=== PATIENT | female | born 1945 | race Caucasian/White ===

== ENCOUNTER → 2016-09-12 | Outpatient (CLI) | payer OTHER ==
[~2016-09-12] VITALS: Ht 149.9 cm; Wt 68.3 kg
[~2016-09-12] MED LIST: ACCUPRIL PO; ACCUPRIL40 MG PO; ACETAMINOPHEN PO; APAP500 PO; APAP650 PO; ASPIRIN EC81 M1 PO; ATENOLOL 50 MG50 M1 PO; ATENOLOL 50MG T50 M1 PO; B12INJ IM; BACLOFEN 10MG T10 MG PO; CALCIUM; CALCIUM 1,0001 EACH PO; DETROL2 M1 PO; DICLOFENAC; ENBREL; ENBREL IM; FENTANYL PA12 MCG/HR TD; FENTANYL PA25 MCG/HR TP; FISH OIL 1,2001 EAC3 PO; FISHOIL; FLUOCINONIDE; FOLIC ACID0.4 MG PO; HYDROCHLOROTHIA25 M1 PO; IRON236 MG PO; K-DUR 20 MEQ T20 MEQ PO; LASIX 40 MG TAB40 M2 PO; LIORESAL 10 MG10 MG PO; LIPITOR40 MG PO; MOBIC7.5 MG PO; MOTION RELIEF25 MG PO; MYRBETRIQ50 MG PO; NORTRIPTYLINE H50 M3 PO; NORVASC 5 MG TAB5 MG PO; PRILOSEC 20 MG20 MG PO; PROLIA60 MG/1 ML SQ; QUINAPRIL 20 MG20 MG PO; TRAMADOL 50 MG50 MG PO; VESICARE10 M1 PO; VITAMIN B-625 MG PO; VITAMIN B-650 M1 PO; VITAMIN C120 GM; VITAMIN D-32000 UNIT PO; VITCB500GO PO; VOLTAREN GEL 1100 G1 TOP; VOLTAREN GEL 1100 G2 TOP; ZOFRAN ODT4 MG PO; [UNRECOGNIZED DRUG - OTHER] IM
--- NOTE | ~2016-09-12 | HPC ---
[facility] [address] [place] [address] PAIN MANAGEMENT CONSULTATION Name: MERCEDES PEDRAZA Room #: REG Brianne Asif#: [id number] Admission: 09/12/16 Attend Phys: Kojo Mak DO Discharge: Date of : 45 Report #: [id number] THIS REPORT FOR: //name// CC: Ravi Mak DATE OF SERVICE: 09/12/2016 The patient is a very pleasant 71-year-old female with severe thoracolumbar scoliosis and spondylosis. She has ongoing axial back pain and has had good relief with medial branch dorsal rami diagnostic block on the left at L2, L3, L4 and L5. Diagnostic block was 08/22/2016. That was block #2. The first diagnostic block is 08/08/2016. Incidentally, she had had excellent relief with prior RFL of these joints back in 11/2015. She had relief for 7-8 months. Pain has begun to recur. She presents to pain clinic today for medial branch dorsal rami neurolysis, right L2, L3, L4 and L5 for symptomatic thoracolumbar spondylosis and scoliosis. PROCEDURE: After written informed consent was obtained, the patient was taken to the fluoroscopy suite and placed in prone position. After sterile prep and drape, skin wheal with Xylocaine raised. Four 10 mm RFK needles were placed to contact superior articular process of L5, L4, L3 and L2. AP and lateral projections showed good needle placement adjacent to the corresponding L5, L4, L3 and L2. Medial branch dorsal rami. Appropriate initial impedance, sensory and motor testing was accomplished. A 1 mL of 1% preservative-free Xylocaine was injected through all four needles. All four needles were heated to 80 degrees centigrade for 90 seconds, 10 mg of triamcinolone +1 mL of 0.5% preservative-free bupivacaine was injected at all 4 sites. All needles removed. The area was cleansed, Band-Aids applied. The patient monitored for an appropriate period of time, discharged in good and stable condition, noting incremental relief of baseline pain. Told to use ice to the area today. She understands it will take about 5 days for lesions to "mature." Follow up as needed. <ELECTRONICALLY SIGNED> By: Kojo Mak DO 09/15/16 1130 1020 1101 Kojo Mak DO /nt
[2016-09-12 10:26] VITALS: BP 113/57
== END ==
LOC: PAIN 07:02
DX: M47.815 Spondylosis without myelopathy or radiculopathy, thoracolumbar region (principal); M41.85 Other forms of scoliosis, thoracolumbar region; I10 Essential (primary) hypertension

== ENCOUNTER → 2017-01-08 | Outpatient (CLI) | payer OTHER ==
[~2017-01-08] VITALS: Ht 149.9 cm; Wt 70.9 kg
[2017-01-08 09:25] VITALS: BP 120/64
== END | disposition home or self-care (01) ==
LOC: PAIN 07:23
DX: M47.815 Spondylosis without myelopathy or radiculopathy, thoracolumbar region (principal); M41.85 Other forms of scoliosis, thoracolumbar region

== ENCOUNTER 2017-01-27 06:52 | Inpatient (IN) | payer OTHER ==
[2017-01-27] VITALS (12 sets, daily range): BP systolic 110–144; BP diastolic 57–78
[~2017-01-27] VITALS: Ht 149.9 cm; Wt 70.3 kg
--- NOTE | ~2017-01-27 | CATHLAB ---
[facility] [employer] [place] [address] INVASIVE PROCEDURE REPORT Name: MERCEDES PEDRAZA Room #: 206-P [facility] IN [facility]#: [id number] Admission: 01/27/17 Attend Phys: Ravi Kulkarni, Discharge: Date of : 45 Date of Service: 01/27/17 1743 Report #: [id number] THIS REPORT FOR: //name// APPROVED REPORT Patient Details Patient Status: In-Patient Room #: The patient is a 71 year-old female Event Personnel Carter Coronado Calibration Laboratory Technician, Hali Cloud RN RN, Florencio Adler RN, Catrina Flores Monitor Procedures Performed Left Heart Cath w/or w/o Coronaries [id number] [facility] w/wo Plasty Single CIRC [id number] Indication Dyspnea, Unstable angina Risk Factors Hypercholesterolemia, Coronary Artery DiseaseHypertension Previous Procedures/Diagnoses Previous PCI Procedure Narrative The Right Groin^ was infiltrated with 1% Lidocaine subcutaneous anesthesia. A PINNACLE 5FR Sheath #[id number] sheath was inserted into the RFA^. Coronary angiography was performed using coronary diagnostic catheters. The right coronary system was accessed and visualized with a JR4 catheter. The left coronary system was accessed and visualized with a JL4 catheter. The left ventricle was accessed and visualized with a PIGTAIL catheter. Left ventricular/Aortic Valve gradient assessed via catheter pullback. Left ventriculogram was performed in 30 degree projection. Closure device was deployed with a 6 Fr MYNXGRIP 5F #[id number]. The patient tolerated the procedure well and there were no complications associated with the procedure. There was no hematoma. Intraoperative Conscious Sedation Sedation start time: 15:17 Case end Time: 15:51 Fentanyl 25 mcg Versed 1 mg [facility] [place] [address] INVASIVE PROCEDURE REPORT Name: MERCEDES PEDRAZA Room #: 206-P [facility]#: [id number] Admission: 01/27/17 Attend Phys: Ravi Kulkarni, Discharge: Date of : 45 Date of Service: 01/27/17 1743 Report #: [id number] Fluoro Time: 9.23 minutes Dose: 1566 mGy Contrast Type and Amount: Visipaque 225 ml Coronary Angiography The patient's coronary anatomy is co- dominant. Diagnostic Cath Left Main Patent vessel, no flow limiting lesions. LAD Moderate size caliber vessel, with no flow-limiting lesions. Circumflex Co-dominant vessel, with mild disease in the mid segment, at the bifurcation of the first OM. OM1 Moderate size caliber vessel with a patent stent in the proximal segment. Just proximal to the stent is a severe, discrete stenosis, 80%. Right Coronary Patent stent in the mid segment. Just proximal and distal to the stent is mild disease, 30%. R PDA Patent with no flow-limiting lesions. Left Ventriculography The left ventricle is normal in size with decreased contractility. The left ventricular ejection fraction is estimated to be 40-45%. Left ventricular wall motion abnormalities are present. Focal hypokinesis of the anterolateral and mid inferior segments. Hemodynamics The aortic pressure is 155/70 mmHg with a mean of 105 mmHg. The left ventricular pressure is 165/16 mmHg with a mean of mmHg. The left ventricular end diastolic pressure is 28 mmHg. There was no gradient across the aortic valve upon pullback. Pullback from the left ventricle to the aorta revealed no gradient across the aortic valve. PCI Technique Lesion Anticoagulation was achieved with Angiomax. Percutaneous coronary intervention was performed on the first obtuse marginal branch segment. The lesion stenosis prior to intervention was 80% with AYAZ 3 flow. A LAUNCHER 6FR EBU 3.5 #[id number] Guide Catheter was used to engage the LCA ostium. A Luge Wire .014 x 182CM #[id number] Interventional Guidewire was used to cross the lesion. BALLOON DILATION A Balloon catheter [place] NC RX 2.5 x 8 #[id number] was inserted and inflated up to 16.00atm for 6seconds. [facility] [address] [place] [address] INVASIVE PROCEDURE REPORT Name: MILOMERCEDES Room #: 206-P [facility] IN .R.#: [id number] Admission: 01/27/17 Attend Phys: Ravi Kulkarni, Discharge: Date of : 45 Date of Service: 01/27/17 1743 Report #: [id number] STENT DEPLOYMENT A drug-eluting stent RESOLUTE RX 2.5 X 8 #[id number] was inserted and inflated up to 16.00atm for 16seconds. POST STENT DEPLOYMENT BALLOON DILATION A Balloon catheter Euphora NC RX 2.75 x 6 #[id number] was inserted and inflated up to 18.00atm for 19seconds. Final angiography reveals 0 % stenosis with AYAZ 3 flow. COMMENTS Successful insertion of a 2.5 mm drug-eluting stent into the proximal/ostial segment of the first OM artery, postdilated with a 2.75 mm noncompliant balloon. Conclusion 1. Successful insertion of a drug-eluting stent into the ostial/proximal segment of the first obtuse marginal artery. 2. Patent stents in the proximal OM1 and mid RCA. 3. Mild to moderate LV dysfunction. 4. Recommend dual antiplatelet therapy for at least 6 months to one year. Recommendations Daily ASA with Plavix for at least one year Medical Therapy <ELECTRONICALLY SIGNED> By: Carter Coronado MD 01/27/171742 42 42 Carter Coronado MD /INF
--- NOTE | ~2017-01-27 | EKG ---
[place] [address] [facility] [place] [address] ELECTROCARDIOGRAM REPORT Name: MERCEDES PEDRAZA Room #: 206-P ADM IN .R.#: [id number] Admission: 01/27/17 Attend Phys: Ravi Kulkarni MD Discharge: Date of : 45 Report #: [id number] THIS REPORT FOR: //name// [facility] Test Date: 2017-01-27 Test Time: 16:53:39 Pat Name: MERCEDES PEDRAZA Department: Room: 206 P Gender: F Steam Boiler Fireman: Sergio TONY : 1945 Requested By: Carter Coronado Order Number: [id number] MD: Measurements Intervals [place] Rate: 48 P: 16 ND: 157 QRS: 11 QRSD: 97 T: 23 QT: 454 QTc: 406 Interpretive Statements Sinus bradycardia Low voltage, precordial leads RSR' in V1 or V2, right VCD or RVH Compared to ECG 04/22/2013 03:08:49 Low QRS voltage now present Right ventricular hypertrophy now present Sinus rhythm no longer present T-wave abnormality no longer present [email or web address] By: 1653 1653 Epiphany Epiphany, [place] /COBY
--- NOTE | ~2017-01-27 | EKG ---
[place] [address] [facility] [employer] [place] [address] ELECTROCARDIOGRAM REPORT Name: MERCEDES PEDRAZA Room #: 206-[facility] IN M.R.#: [id number] Admission: 01/27/17 Attend Phys: Ravi Kulkarni MD Discharge: Date of : 45 Report #: [id number] THIS REPORT FOR: //name// [facility] Test Date: 2017-01-28 Test Time: 06:07:41 Pat Name: MERCEDES PEDRAZA Department: Room: 206 P Gender: F Launchman: JOSUE : 1945 Requested By: Carter Coronado Order Number: [id number] MD: Measurements Intervals [place] Rate: 65 P: 22 KS: 172 QRS: 31 QRSD: 96 T: -8 QT: 399 QTc: 415 Interpretive Statements Sinus rhythm Low voltage, precordial leads Abnormal R-wave progression, early transition Borderline T abnormalities, inferior leads Compared to ECG 04/22/2013 03:08:49 Low QRS voltage now present T-wave abnormality still present [email or web address] By: 0607 6 Epiphany Epiphany, /EPI
--- NOTE | ~2017-01-27 | EKG ---
[place] [address] [place] [address] ELECTROCARDIOGRAM REPORT Name: MERCEDES PEDRAZA [id number] Admission: Attend Phys: Discharge: Date of : 45 Report #: [id number] THIS REPORT FOR: //name// [facility] ED Test Date: 2017-01-27 Test Time: 06:55:44 Pat Name: MERCEDES SANTIAGOUTT Department: Room: Gender: F Orthopaedic Physician Assistant: [id number] : 1945 Requested By: Giovana White Order Number: [id number] MD: Measurements Intervals [place] Rate: 63 P: 20 NH: 176 QRS: 25 QRSD: 91 T: 18 QT: 405 QTc: 415 Interpretive Statements Sinus rhythm Low voltage, precordial leads Abnormal R-wave progression, early transition Borderline T abnormalities, anterior leads Compared to ECG 04/22/2013 03:08:49 Low QRS voltage now present T-wave abnormality still present [email or web address] By: 0655 0655 Epiphany EpiphMD melba /EPI
[2017-01-27 07:16] LABS: ABSOLUTE NEUTROPHILS 6.1 thou/uL (1.4-8.2); BASOPHILS 0.8 % (0.0-2.0); EOSINOPHILS 1.6 % (0.0-3.0); HEMATOCRIT 41.8 % (37.0-47.0); HEMOGLOBIN 14.3 gm/dL (12.0-15.0); MCH 32.3 pg (26.0-34.0); MCHC 34.2 g/dL (28.0-37.0); MCV 94.4 fL (80.0-100.0); MONOCYTES 7.6 % (1.0-8.0); PLATELET COUNT 176 thou/uL (150-400); RBC 4.43 mil/uL (4.20-5.00); RDW 13.3 % (10.5-14.5); WBC 8.7 thou/uL (4.0-11.0)
[2017-01-27 07:21] LABS: MANUAL DIFF NO
[2017-01-27 07:23] LABS: CALCIUM 9.6 mg/dL (8.5-10.1); CREATININE 1.2 mg/dL (0.6-1.0)
[2017-01-27] MEDS ORDERED: FLUOCINONI0.05 %/30 TOP (07:25)
[2017-01-27 07:32] LABS: TROPONIN-I 0.12 ng/mL (<0.04-0.07)
[2017-01-27 08:47] LABS: APTT 25.2 Seconds (24.5-32.8); PROTIME 10.3 Seconds (9.3-11.4)
[2017-01-28 00:13] VITALS: BP 123/61
[2017-01-28 00:40] VITALS: BP 123/61
[2017-01-28 03:28] LABS: HEMATOCRIT 40.4 % (37.0-47.0); HEMOGLOBIN 13.7 gm/dL (12.0-15.0); MCH 31.2 pg (26.0-34.0); MCHC 33.8 g/dL (28.0-37.0); MCV 92.3 fL (80.0-100.0); RBC 4.38 mil/uL (4.20-5.00); RDW 13.1 % (10.5-14.5); WBC 7.6 thou/uL (4.0-11.0)
[2017-01-28 03:44] LABS: CREATININE 0.9 mg/dL (0.6-1.0); POTASSIUM 3.9 mmol/L (3.5-5.1)
[2017-01-28 03:47] LABS: TROPONIN-I 3.12 ng/mL (<0.04-0.07)
[2017-01-28 04:42] VITALS: BP 130/71
[2017-01-28 05:00] VITALS: BP 130/71
[2017-01-28] MEDS ORDERED: EFFIENT10 MG PO (07:19)
[2017-01-28 07:25] VITALS: BP 137/71
[2017-01-28 09:16] VITALS: BP 137/71
[2017-01-30] MEDS ORDERED: EFFIENT10 MG PO (10:07)
== END 2017-01-28 10:41 | disposition home or self-care (01) | DRG 247 ==
LOC: ER 06:52 → 2N 07:54 → EROBS 07:54 → 2N 08:43
PROVIDERS: Emergency Medicine; Internal Medicine Cardiovascular Disease
PROC: B2151ZZ Fluoroscopy of Left Heart using Low Osmolar Contrast (ICD-10-PCS; principal; 2017-01-27)
PROC: B2111ZZ Fluoroscopy of Multiple Coronary Arteries using Low Osmolar Contrast (ICD-10-PCS; principal; 2017-01-27)
PROC: 4A023N7 Measurement of Cardiac Sampling and Pressure, Left Heart, Percutaneous Approach (ICD-10-PCS; principal; 2017-01-27)
PROC: 027034Z Dilation of Coronary Artery, One Artery with Drug-eluting Intraluminal Device, Percutaneous Approach (ICD-10-PCS; principal; 2017-01-27)
DX: I21.4 Non-ST elevation (NSTEMI) myocardial infarction (principal); Z96.653 Presence of artificial knee joint, bilateral; I25.10 Atherosclerotic heart disease of native coronary artery without angina pectoris; I10 Essential (primary) hypertension; E78.5 Hyperlipidemia, unspecified; M06.9 Rheumatoid arthritis, unspecified; Z96.642 Presence of left artificial hip joint; Z98.1 Arthrodesis status; Z95.5 Presence of coronary angioplasty implant and graft; Z88.2 Allergy status to sulfonamides
CPT/HCPCS: 10081; 10194

== ENCOUNTER → 2017-01-30 | Outpatient (CLI) | payer OTHER ==
[~2017-01-30] VITALS: Ht 149.9 cm; Wt 69.3 kg
[~2017-01-30] MED LIST changes: +EFFIENT10 MG PO; +FLUOCINONI0.05 %/30 TOP
--- NOTE | ~2017-01-30 | HPC ---
[facility] [address] [place] [address] PAIN MANAGEMENT CONSULTATION Name: MERCEDES PEDRAZA Room #: REG MICHAEL Asif#: [id number] Admission: 01/30/17 Attend Phys: Kojo Mak DO Discharge: Date of : 45 Report #: [id number] THIS REPORT FOR: //name// CC: Ravi Mak The patient is a very pleasant 71-year-old female being treated for thoracolumbar spondylosis, significant scoliosis and axial back pain. On 01/08/2017, I did left L3-L4, L4-5, and L5-U4qucta joint injections under fluoroscopy. The patient had excellent relief, but still is ongoing relief. In the interval since I last saw her, she was admitted to the hospital 01/27/2017 with non-ST elevated [place]. She has had a new stent placed and is on Effient. He returns to pain clinic today noting that the left side of back still is feeling good. She does have significant pain in the right back at the apex of her scoliosis. Pain is exacerbated with rotating and side bending. I talked at length today about therapeutic options. We can proceed with the facet joint injections on a blood thinner per JOHN guide lines. We did discuss risks; however, of increased bruising and paralysis; however, small that risk may be. We have elected to proceed with a right L1-L2, L2-3 and L3-L4 facet joint injections under fluoroscopy, as this appears to be the epicenter of pain on this right side. ASSESSMENT: Symptomatic lumbar spondylosis. PROCEDURE: Right L1-L2, L2-L3, L3-L4 facet joint injections under fluoroscopy. Fluoroscopy time was under 20 seconds. PROCEDURE NOTE: After written informed consent was obtained, the patient was taken to the fluoroscopy suite and placed in prone position. After sterile prep and drape, skin wheal with Xylocaine was raised x 3. Three #25-gauge stylet needle was placed to contact the inferior aspect of the right L1-L2, L2-L3 and L3-L4 facet joints. AP and lateral projections showed good needle placement. 30 mg triamcinolone plus 1 mL of 0.5% preservative-free bupivacaine was injected at each site. All 3 needles removed. The area was cleansed, Band-Aids applied. The patient monitored for an appropriate period of time, discharged in good and stable condition. <ELECTRONICALLY SIGNED> By: Kojo Mak DO 02/02/17 0908 1202 1302 Kojo Mak DO /nt
[2017-01-30 10:02] VITALS: BP 117/68
== END | disposition home or self-care (01) ==
LOC: PAIN 07:18
DX: M47.816 Spondylosis without myelopathy or radiculopathy, lumbar region (principal); G89.29 Other chronic pain; Z88.2 Allergy status to sulfonamides; Z79.82 Long term (current) use of aspirin; Z79.899 Other long term (current) drug therapy; Z98.890 Other specified postprocedural states

== ENCOUNTER 2017-02-19 14:18 | Inpatient (IN) | payer OTHER ==
[~2017-02-19] VITALS: Ht 149.9 cm; Wt 68.0 kg
--- NOTE | ~2017-02-19 | EKG ---
[place] [address] [facility] [place] [address] ELECTROCARDIOGRAM REPORT Name: MERCEDES PEDRAZA Room #: 405-P [facility] IN ..#: [id number] Admission: 02/19/17 Attend Phys: Ravi Kulkarni MD Discharge: Date of : 45 Report #: [id number] THIS REPORT FOR: //name// [facility] ED Test Date: 2017-02-19 Test Time: 15:07:50 Pat Name: MERCEDES PEDRAZA Department: Room: 405 Gender: F Manager Hematology: oz : 1945 Requested By: Luigi Mendez Order Number: [id number] MD: Tevin Dickinson Measurements Intervals [place] Rate: 75 P: 12 MS: 166 QRS: 15 QRSD: 95 T: 5 QT: 377 QTc: 421 Interpretive Statements Sinus rhythm Ventricular premature complex Probable left atrial enlargement Nonspecific ST segment abnormality Abnormal R-wave progression, early transition Compared to ECG 01/28/2017 06:07:41 Ventricular premature complex(es) now present Electronically Signed On 02-20-2017 8:39:32 CDT by Tevin Dickinson [email or web address] <ELECTRONICALLY SIGNED> By: Tevin Dickinson MD, [facility] 02/20/17 0839 1507 1507 Tevin Dickinson MD, [facility] /EPI
[2017-02-19 14:21] VITALS: BP 105/85
[2017-02-19 16:20] LABS: HEMATOCRIT 46.8 % (37.0-47.0); HEMOGLOBIN 15.4 gm/dL (12.0-15.0); MCH 30.7 pg (26.0-34.0); MCHC 32.9 g/dL (28.0-37.0); MCV 93.3 fL (80.0-100.0); RBC 5.01 mil/uL (4.20-5.00); RDW 13.9 % (10.5-14.5); WBC 15.1 thou/uL (4.0-11.0)
[2017-02-19 16:43] LABS: ANION GAP 10 mmol/L (7-16); BUN 23 mg/dL (7-18); CALCIUM 10.8 mg/dL (8.5-10.1); CHLORIDE 106 mmol/L (98-107); CO2 29 mmol/L (21-32); CREATININE 1.2 mg/dL (0.6-1.0); GLUCOSE 131 mg/dL (74-106); POTASSIUM 3.9 mmol/L (3.5-5.1); SODIUM 145 mmol/L (136-145)
[2017-02-19 16:52] LABS: ALBUMIN 4.1 g/dL (3.4-5.0); ALKALINE PHOSPHATASE 89 U/L (46-116); MAGNESIUM 2.4 mg/dL (1.8-2.4); SGOT 34 U/L (15-37); SGPT 33 U/L (30-65); TOTAL BILIRUBIN 0.4 mg/dL (<0.1-1.0); TOTAL PROTEIN 8.3 g/dL (6.4-8.2); TROPONIN-I < 0.04 ng/mL (<0.04-0.07)
[2017-02-19 21:15] VITALS: BP 144/71
[2017-02-19 22:15] VITALS: BP 134/71
[2017-02-20 05:29] VITALS: BP 120/62
[2017-02-20 07:35] VITALS: BP 115/63
[2017-02-20 08:10] LABS: HEMATOCRIT 41.6 % (37.0-47.0); HEMOGLOBIN 13.9 gm/dL (12.0-15.0); MCH 31.2 pg (26.0-34.0); MCHC 33.5 g/dL (28.0-37.0); MCV 93.1 fL (80.0-100.0); RBC 4.47 mil/uL (4.20-5.00); RDW 14.3 % (10.5-14.5); WBC 14.3 thou/uL (4.0-11.0)
[2017-02-20 15:12] VITALS: BP 120/69
[2017-02-20 16:40] VITALS: BP 127/63
[2017-02-20 20:14] VITALS: BP 114/59
[2017-02-21 04:21] VITALS: BP 88/48
[2017-02-21 06:50] VITALS: BP 87/48
[2017-02-21 07:30] VITALS: BP 94/50
[2017-02-21 16:20] VITALS: BP 101/51
[2017-02-21 20:04] VITALS: BP 91/41
[2017-02-22 04:15] VITALS: BP 90/48
[2017-02-22 06:23] LABS: HEMATOCRIT 37.6 % (37.0-47.0); HEMOGLOBIN 12.6 gm/dL (12.0-15.0); MCHC 33.4 g/dL (28.0-37.0); MCV 92.6 fL (80.0-100.0); RBC 4.05 mil/uL (4.20-5.00); RDW 14.2 % (10.5-14.5); WBC 9.3 thou/uL (4.0-11.0)
[2017-02-22 06:34] LABS: CALCIUM 9.3 mg/dL (8.5-10.1); CREATININE 1.3 mg/dL (0.6-1.0); POTASSIUM 3.5 mmol/L (3.5-5.1)
[2017-02-22 08:02] VITALS: BP 101/47
[2017-02-22] MEDS ORDERED: LEVAQUIN 500 M500 M2 PO (10:26)
[2017-02-22 11:07] VITALS: BP 101/47
== END 2017-02-22 13:48 | disposition home or self-care (01) | DRG 872 ==
LOC: ER 14:18 → EROBS 20:43 → 4N 20:43
PROVIDERS: Emergency Medicine; Family Medicine
DX: A41.9 Sepsis, unspecified organism (principal); N17.9 Acute kidney failure, unspecified; K92.2 Gastrointestinal hemorrhage, unspecified; K52.9 Noninfective gastroenteritis and colitis, unspecified; M06.9 Rheumatoid arthritis, unspecified; I10 Essential (primary) hypertension; Z96.653 Presence of artificial knee joint, bilateral; Z95.5 Presence of coronary angioplasty implant and graft; Z98.1 Arthrodesis status; Z79.82 Long term (current) use of aspirin; Z79.899 Other long term (current) drug therapy; Z88.2 Allergy status to sulfonamides
CPT/HCPCS: 10091

== ENCOUNTER → 2017-03-09 | Outpatient (CLI) | payer OTHER ==
[~2017-03-09] VITALS: Ht 149.9 cm; Wt 65.8 kg
[~2017-03-09] MED LIST changes: +LEVAQUIN 500 M500 M2 PO
--- NOTE | ~2017-03-09 | HPC ---
[facility] [address] [place] [address] PAIN MANAGEMENT CONSULTATION Name: MERCEDES PEDRAZA Room #: REG MICHAEL Asif#: [id number] Admission: 03/09/17 Attend Phys: Kojo Mak DO Discharge: Date of : 45 Report #: [id number] THIS REPORT FOR: //name// CC: Ravi Mak The patient is a very pleasant 71-year-old female typically treated for thoracolumbar scoliosis and spondylosis, chronic axial back pain. She has done well with occasional facet joint injections, she did well with radiofrequency neurolysis in August of this year. Pain has begun to recur. I did left facet joint injections in December with excellent ongoing improvement of pain, right facet joint injections in January with only transient improvement. She notes left side still feels good, but the right side is problematic. Pain is in the mid back area along the apex of the scoliotic arch exacerbated with rotation and side bending. Discussion with the patient today about therapeutic options. She unfortunately had a recent cardiac event and now has endovascular stents placed and is currently anticoagulated. We talked about moving forward with medial branch dorsal rami diagnostic blocks today. If, however, this gives her good transient relief, we will need to move forward with radiofrequency neurolysis, would want her off of her blood thinner. She tells me that she has a colonoscopy planned I believe in March, will obviously need to be off the blood thinner for that procedure. We may try and coordinate those procedures. ASSESSMENT: Symptomatic thoracolumbar spondylosis and scoliosis with lumbar axial back pain. PROCEDURE: Medial branch dorsal rami diagnostic block times 4 on the right, L1, L2, L3 and L4. PROCEDURE NOTE: Lumbar medial branch dorsal rami diagnostic block times 4 under fluoroscopy. DESCRIPTION OF PROCEDURE: After written informed consent was obtained, the patient was taken to the fluoroscopy suite and placed in prone position. After sterile prep and drape, skin wheals with Xylocaine were raised. Four 25-gauge stylet needles was placed to contact the superior articular process of L2, L3, L4 and L5 adjacent to the L1, L2, L3 and L4 medial branch dorsal rami. AP and lateral projections showed good needle placement. A 1 mL of 50:50 mix of 0.5% preservative-free bupivacaine plus 1 mL of 1.5% preservative-free Xylocaine with 1:200,000 epinephrine was injected at all 4 sites. All 4 needles removed. The area was cleansed, Band-Aids applied. Fluoroscopy time was 120 seconds. The patient noted pain was absent on discharge. We will plan on moving forward with RFL in coordination with her colonoscopy. By: 1621 0423 Kojo Mak DO /nt
[2017-03-09 12:28] VITALS: BP 134/64
== END | disposition home or self-care (01) ==
LOC: PAIN 10:12
DX: M47.815 Spondylosis without myelopathy or radiculopathy, thoracolumbar region (principal); M41.85 Other forms of scoliosis, thoracolumbar region; M54.5 Low back pain; G89.29 Other chronic pain; Z98.890 Other specified postprocedural states; Z88.2 Allergy status to sulfonamides; Z79.82 Long term (current) use of aspirin; Z79.899 Other long term (current) drug therapy

== ENCOUNTER → 2017-03-23 | Outpatient (CLI) | payer OTHER ==
[~2017-03-23] VITALS: Ht 149.9 cm; Wt 68.1 kg
--- NOTE | ~2017-03-23 | HPC ---
[facility] [address] [place] [address] PAIN MANAGEMENT CONSULTATION Name: MERCEDES PEDRAZA Room #: REG MICHAEL Asif#: [id number] Admission: 03/23/17 Attend Phys: Kojo Mak DO Discharge: Date of : 45 Report #: [id number] THIS REPORT FOR: //name// CC: Ravi Mak HISTORY OF PRESENT ILLNESS: The patient is a pleasant 71-year-old female, well known to the pain clinic, treated for thoracolumbar scoliosis and spondylosis and chronic pain syndrome. We did medial branch dorsal rami diagnostic blocks, right L1, L2, L3, L4 on 03/09/2017. The patient notes she had significant improvement of baseline pain, some 90% relief for several hours. She is very desirous of repeating radiofrequency neurolysis of same. We talked at length about doing this block, even though she cannot get off her blood thinner. I talked about the possibility of significant bleeding and bruising which should be far away from the spinal cord and nerve roots. ASSESSMENT: Symptomatic spondylosis. PROCEDURE: Right L1, L2, L3 and L4 medial branch dorsal rami and neurolysis. PROCEDURE NOTE: After written informed consent was obtained including risk of paralysis increasing pain, infection and significant bleeding, the patient wished to proceed, taken to the fluoroscopy suite and placed in prone position. After sterile prep and drape, skin was raised. Four skin wheals were raised with Xylocaine. Four 10 mm RFK needles were placed to contact superior articular process of L1, L2, L3 and L4. AP and lateral projections showed good needle placement adjacent to the L1, L2, L3 and L4 medial branch dorsal rami. Appropriate initial impedance, sensory testing and motor testing was accomplished. A 1 mL of 1% preservative-free Xylocaine was injected through each needle. All 4 needles were then heated to 80 degrees centigrade for 90 seconds. A 10 mg triamcinolone plus 1 mL of 0.5% preservative-free bupivacaine was injected. All 4 needles were removed. Area was cleansed, Band-Aids applied. The patient monitored for an appropriate period of time, discharged in good and stable condition. She was told to use ice to the area today. Follow up as needed. <ELECTRONICALLY SIGNED> By: Kojo Mak DO 03/25/17 0752 1600 0005 Kojo Mak DO /nt
[2017-03-23 14:15] VITALS: BP 128/71
== END ==
LOC: PAIN 07:36
DX: M41.86 Other forms of scoliosis, lumbar region (principal); M47.896 Other spondylosis, lumbar region; G89.29 Other chronic pain; I10 Essential (primary) hypertension; M19.012 Primary osteoarthritis, left shoulder; M19.011 Primary osteoarthritis, right shoulder; M06.812 Other specified rheumatoid arthritis, left shoulder; M06.811 Other specified rheumatoid arthritis, right shoulder; Z88.2 Allergy status to sulfonamides; Z79.899 Other long term (current) drug therapy

== ENCOUNTER 2017-05-22 01:59 | Inpatient (IN) | payer OTHER ==
[2017-05-22] VITALS (7 sets, daily range): BP systolic 86–133; BP diastolic 53–67
[~2017-05-22] VITALS: Ht 149.9 cm; Wt 67.1 kg
--- NOTE | ~2017-05-22 | EKG ---
[address] [employer] [address] ELECTROCARDIOGRAM REPORT Name: MERCEDES PEDRAZA Room #: 443-P [facility]#: [id number] Admission: 05/22/17 Attend Phys: Ravi Kulkarni MD Discharge: 05/22/17 Date of : 45 Report #: [id number] THIS REPORT FOR: //name// [facility] ED Test Date: 2017-05-22 Test Time: 02:21:26 Pat Name: MERCEDES PEDRAZA Department: Room: [facility] Gender: F Agricultural Equipment Operator: MZOOK : 1945 Requested By: Sofi Briggs Order Number: [id number] MD: Roberto Liu Measurements Intervals [place] Rate: 74 P: 21 NC: 160 QRS: 42 QRSD: 98 T: 6 QT: 395 QTc: 439 Interpretive Statements Sinus rhythm Multiple ventricular premature complexes Low voltage, precordial leads RSR' in V1 or V2, right VCD or RVH Electronically Signed On 05-23-2017 12:20:13 CUPOLA REPAIRER by Roberto Liu [email or web address] <ELECTRONICALLY SIGNED> By: Roberto Liu MD 05/23/17 1220 0 0 Roberto Liu MD /EPI
[2017-05-22 02:53] LABS: ABSOLUTE NEUTROPHILS 5.9 thou/uL (1.4-8.2); BASOPHILS 0.9 % (0.0-2.0); EOSINOPHILS 1.6 % (0.0-3.0); HEMATOCRIT 42.1 % (37.0-47.0); HEMOGLOBIN 13.6 gm/dL (12.0-15.0); LYMPHOCYTES 18.9 % (24.0-44.0); MCHC 32.2 g/dL (28.0-37.0); MCV 96.2 fL (80.0-100.0); MONOCYTES 7.3 % (1.0-8.0); PLATELET COUNT 225 thou/uL (150-400); POLYS 71.3 % (36.0-66.0); RBC 4.38 mil/uL (4.20-5.00); RDW 13.2 % (10.5-14.5); WBC 8.2 thou/uL (4.0-11.0)
[2017-05-22 02:59] LABS: ANION GAP 6 mmol/L (7-16); BUN 24 mg/dL (7-18); CALCIUM 9.4 mg/dL (8.5-10.1); CHLORIDE 107 mmol/L (98-107); CO2 29 mmol/L (21-32); CREATININE 1.2 mg/dL (0.6-1.0); GLUCOSE 112 mg/dL (74-106); POTASSIUM 3.8 mmol/L (3.5-5.1); SODIUM 142 mmol/L (136-145)
[2017-05-22 03:07] LABS: ALBUMIN 3.5 g/dL (3.4-5.0); DIRECT BILIRUBIN < 0.1 mg/dL (<0.1-0.3); LIPASE 203 U/L (73-393); SGOT 28 U/L (15-37); SGPT 30 U/L (30-65); TOTAL BILIRUBIN 0.3 mg/dL (<0.1-1.0); TROPONIN-I < 0.04 ng/mL (<0.06)
[2018-03-17] MEDS ORDERED: SYNTHROID100 MC1 PO (12:53)
[2018-03-24] MEDS ORDERED: TREXALL15 MG PO (11:18)
[2018-03-26] MEDS ORDERED: FOLIC ACID1 MG PO (10:05)
[2018-03-26] MEDS ORDERED: SYNTHROID88 MCG PO (10:06)
[2018-03-26] MEDS ORDERED: OMEPRAZOLE 20 M20 M1 PO (10:10)
== END 2017-05-22 20:00 | disposition home or self-care (01) | DRG 392 ==
LOC: ER 01:59 → 4S 04:19 → EROBS 04:19 → 4S 04:47
PROVIDERS: Emergency Medicine
DX: K52.89 Other specified noninfective gastroenteritis and colitis (principal); R53.1 Weakness; I10 Essential (primary) hypertension; R11.10 Vomiting, unspecified; R19.7 Diarrhea, unspecified; M06.9 Rheumatoid arthritis, unspecified; Z96.653 Presence of artificial knee joint, bilateral; Z88.2 Allergy status to sulfonamides
CPT/HCPCS: 10100

== ENCOUNTER → 2017-06-12 | Outpatient (CLI) | payer OTHER ==
[~2017-06-12] VITALS: Ht 149.9 cm; Wt 67.1 kg
--- NOTE | ~2017-06-12 | HPC ---
[facility] [address] [place] [address] PAIN MANAGEMENT CONSULTATION Name: MERCEDES PEDRAZA Room #: REG ALANA Yefri#: [id number] Admission: 06/12/17 Attend Phys: Kojo Mak DO Discharge: Date of : 45 Report #: [id number] THIS REPORT FOR: //name// CC: Ravi Mak The patient is a very pleasant 71-year-old female, well known to the pain clinic, typically treated for thoracolumbar scoliosis and spondylosis. She was last seen in the pain clinic on 03/23/2017. We performed radiofrequency neurolysis right L1, L2, L3 and L4 medial branch dorsal rami. Returns to pain clinic today noting that the pain along the apex of the thoracolumbar curve is actually improved. She is having increasing pain in the right low back over the right SI joint. Pain is exacerbated with standing, walking and flexing forward. She rates the pain at 5-6 on a VAS. Also, having some pain in the left shoulder. She has a history of shoulder rotator cuff tear and labrum repair 5 years ago. She is scheduled to see orthopedic at shortly. Ongoing axial back pain, relatively well controlled; right SI joint pain is quite problematic and pain in the left shoulder with exacerbated active and passive rotation and tenderness in the trapezius. Brandy test is positive as is Gaenslen's and pelvic compression test for right SI mediated pain. ASSESSMENT: Symptomatic sacroiliac mediated pain (right), thoracolumbar scoliosis, spondylosis and left shoulder pain. RECOMMENDATIONS: 1. SI joint injection under fluoroscopy today on the right. 2. IM injection of 30 mg Toradol for left shoulder and axial back pain. PROCEDURE NOTE: After written informed consent was obtained, the patient was taken to the fluoroscopy suite and placed in the prone position. After sterile prep and drape, skin was raised. A 22-gauge stylet needle was placed to contact the upper aspect of the right SI joint. Negative aspiration was accomplished. 1 mL of Omnipaque was injected, which showed spread within the joints followed with 40 mg triamcinolone plus 2 mL of 0.5 preservative-free bupivacaine. Needle was removed. The area was cleansed and Band-Aids applied. I then placed an IM injection of 30 mg Toradol in the right gluteus medius. Band-Aid was applied here as well. The patient was allowed to ambulate to the recovery room, monitored for an appropriate period of time, discharged in good and stable condition. By: 1653 2213 Kojo Mak DO /nt
[2017-06-12 14:34] VITALS: BP 109/69
== END | disposition home or self-care (01) ==
LOC: PAIN 07:52
DX: M53.3 Sacrococcygeal disorders, not elsewhere classified (principal); G89.29 Other chronic pain; M41.85 Other forms of scoliosis, thoracolumbar region; M47.895 Other spondylosis, thoracolumbar region; M25.512 Pain in left shoulder; Z98.890 Other specified postprocedural states; Z88.2 Allergy status to sulfonamides; Z79.82 Long term (current) use of aspirin; Z79.899 Other long term (current) drug therapy

== ENCOUNTER → 2017-07-23 | Outpatient (CLI) | payer OTHER ==
[~2017-07-23] MED LIST changes: +FOLIC ACID1 MG PO; +OMEPRAZOLE 20 M20 M1 PO; +SYNTHROID100 MC1 PO; +SYNTHROID88 MCG PO; +TREXALL15 MG PO
== END ==
LOC: RAD 00:24
DX: Z12.31 Encounter for screening mammogram for malignant neoplasm of breast (principal)

== ENCOUNTER → 2017-08-07 | Outpatient (CLI) | payer OTHER ==
[~2017-08-07] VITALS: Ht 149.9 cm; Wt 68.0 kg
--- NOTE | ~2017-08-07 | HPC ---
[facility] [place] [address] PAIN MANAGEMENT CONSULTATION Name: MERCEDES PEDRAZA Room #: REG MICHAEL Asif#: [id number] Admission: 08/07/17 Attend Phys: Kojo Mak DO Discharge: Date of : 45 Report #: [id number] THIS REPORT FOR: //name// CC: Ravi Mak DATE OF SERVICE: 08/07/2017 HISTORY OF PRESENT ILLNESS: The patient is a delightful 71-year-old female typically treated for thoracolumbar scoliosis, spondylosis, SI mediated pain, axial back pain. She has had multiple procedures over the past 6 months. She had left lumbar and right lumbar facets done in December and January of this year. These afforded good transient relief. Repeated a medial branch dorsal rami diagnostic blocks on 03/09/2017 sans steroid. Transient relief. We proceeded with radiofrequency neurolysis on the right on 03/23/2017, 4 levels thoracolumbar area. This afforded good relief. She returns to the pain clinic on 06/12/2017. She notes that the right-sided RFL at L1, L2, L3, L4 had provided ongoing relief. She was having pain in the right SI area. I accomplished a right SI joint injection under fluoroscopy with 40 mg triamcinolone at that time. She returns to pain clinic today noting the right low back and mid back area still remain relatively well controlled. She notes she was wearing different shoes, recently a different height when developed some pain in the left low back, more compatible to the SI area. This is somewhat improved over time. She rates current pain about 6 or 7 with standing. PHYSICAL EXAMINATION: Shows a pleasant 71-year-old female, BMI is 30.3 kilograms per meter squared. Vital signs are stable as noted on the EMR. She has not fallen in the last 6 months. She is on the blood thinner, Effient. History of hypertension. Medicines were reconciled. She has a significant thoracolumbar scoliosis tenderness in the left SI area, perhaps a little bit in the left L5-S1 area as well. Lower extremity strength is symmetric. Straight leg raise is negative. ASSESSMENT: Thoracolumbar scoliosis and spondylosis, sacroiliac mediated pain and axial back pain. RECOMMENDATIONS: I had a long discussion with the patient today about therapeutic options. We talked about a spinal cord stimulator in the past. I think she will benefit from a high frequency stimulator, unfortunately she prior had an old technology [employer] stimulator trial by pain clinic physician at this hospital who is not in our group. That trial apparently did not go well. [address] [address] PAIN MANAGEMENT CONSULTATION Name: MERCEDES PEDRAZA Room #: REG Brianne Asif#: [id number] Admission: 08/07/17 Attend Phys: Kojo Mak DO Discharge: Date of : 45 Report #: [id number] The patient had a bad outcome with the trial and did not move forward. Around that time, she transferred her care to [facility]. I assured her that we could consider trialing again. With high frequency stimulation, I think she would not have the prior paresthesias. I think she may actually get some significant improvement in functional status. I did point out that with her significant thoracoscoliosis, it would be technically challenging but given the possible benefits, would be worth the endeavor. Nonetheless, the patient would like to defer and I certainly respect that. Today, we talked about therapeutic options. I would like to postpone interventional therapy at this time. I told her we can repeat steroid injection, perhaps in another 4-6 weeks. We talked about concerns for osteoporosis with frequent steroids over time. The patient was discharged in good and stable condition today. No therapeutic intervention. Follow up simply as needed. <ELECTRONICALLY SIGNED> By: Kojo Mak DO 08/12/17 0725 [id number] [id number] Kojo Mak DO /nt
[2017-08-07 11:22] VITALS: BP 127/80
== END ==
LOC: PAIN 07:22
DX: M47.895 Other spondylosis, thoracolumbar region (principal); M53.3 Sacrococcygeal disorders, not elsewhere classified

== ENCOUNTER → 2017-12-02 | Outpatient (CLI) | payer OTHER ==
[~2017-12-02] MED LIST changes: -FOLIC ACID1 MG PO; -OMEPRAZOLE 20 M20 M1 PO; -SYNTHROID100 MC1 PO; -SYNTHROID88 MCG PO; -TREXALL15 MG PO
[2017-12-02 09:19] LABS: CREATININE 1.2 mg/dL (0.6-1.0)
== END ==
LOC: CAT 08:40 → LABMALL 08:40
PROVIDERS: Family Medicine
DX: I25.10 Atherosclerotic heart disease of native coronary artery without angina pectoris (principal); I31.3 Pericardial effusion (noninflammatory); I51.7 Cardiomegaly; K44.9 Diaphragmatic hernia without obstruction or gangrene; M47.895 Other spondylosis, thoracolumbar region; M41.85 Other forms of scoliosis, thoracolumbar region; I74.8 Embolism and thrombosis of other arteries

== ENCOUNTER → 2018-03-17 | Outpatient (CLI) | payer OTHER ==
[~2018-03-17] VITALS: Ht 149.9 cm; Wt 69.7 kg
[~2018-03-17] MED LIST changes: +FOLIC ACID1 MG PO; +OMEPRAZOLE 20 M20 M1 PO; +SYNTHROID100 MC1 PO; +SYNTHROID88 MCG PO; +TREXALL15 MG PO
--- NOTE | ~2018-03-17 | HPC ---
[facility] [address] [place] [address] PAIN MANAGEMENT CONSULTATION Name: MILOMERCEDES C Room #: REG [facility] [id number] Admission: 03/17/18 Attend Phys: Albin Mak DO Discharge: Date of : 45 Report #: [id number] THIS REPORT FOR: //name// CC: Albin Kulkarni MD DATE OF SERVICE: 03/17/2018 CHIEF COMPLAINT: Right and left upper buttock pain secondary to SI joint dysfunction. HISTORY OF PRESENT ILLNESS: As you know, the patient is a 72-year-old female who returns today in followup visit reporting continued upper buttock pain, greater on the right than the left. The patient, as you are aware, suffers from SI joint dysfunction for which she undergoes injections periodically. She returns today citing no injury, no trauma with recurrence of pain. She is placing pain today at a level of 7/10, states her pain is sharp, stabbing and pressure in sensation, exacerbated with walking, standing, tends to be worse in the morning hours and improves throughout the day. Sitting and repositioning tends to improve pain as does previous intraarticular SI joint injections. She returns today to undergo right SI joint injection under fluoroscopic guidance. ALLERGIES: SULFA. CURRENT MEDICATIONS: Levothyroxine, acetaminophen, ferrous sulfate, quinapril, diclofenac, baclofen, Myrbetriq, Prolia, potassium, furosemide, vitamin B6, vitamin B12, folic acid, ascorbic acid, calcium carbonate, omega 3 fish oil, Enbrel, atenolol, aspirin, atorvastatin, nortriptyline and cholecalciferol. SOCIAL HISTORY: The patient reports herself as a nonsmoker. Denies IV or illicit drug use. Denies any chronic alcohol use. Unaccompanied today. IMAGING: No new imaging available. PQRS: The patient has known osteoarthritis of the left upper extremity, right upper extremity, bilateral lower extremities and bilateral knees. She does carry a history of rheumatoid arthritis for which she is being treated. She places pain intensity of around 6-7/10. She is a fall risk, but has not had a fall in the last 3 months. She does use a cane for ambulation. She is on a blood thinner in the form of Effient, but this has now been discontinued. She has a history of hypertension. She is not on opioids. She has a low opioid addiction potential. PHYSICAL EXAMINATION: VITAL SIGNS: Blood pressure 127/80, pulse is 75, respiratory rate 16 and [facility] [address] [place] [address] PAIN MANAGEMENT CONSULTATION Name: MERCEDES PEDRAZA Room #: [facility]#: [id number] Admission: 03/17/18 Attend Phys: Albin Mak DO Discharge: Date of : 45 Report #: [id number] unlabored, the patient 99% on room air. Height 4 feet 11 inches tall, weight 150 pounds, BMI calculated 30.3. GENERAL: Well-developed, well-nourished, well-hydrated, scoliotic and kyphotic 72-year-old female appearing her stated age placing current pain score at approximately 6-7/10. HEENT: Normocephalic and atraumatic. Pupils are equal, round and reactive to light. EXTREMITIES: Show no clubbing, no cyanosis and no edema. MUSCULOSKELETAL: The patient has significant thoracolumbar scoliosis and tenderness throughout the paraspinal musculature of the thoraco and lumbar area. Deep palpation over the SI joints cause intensification of pain. The patient has well-healed surgical scars from total hip arthroplasty. Deep palpation over the right SI joint causes intensification of pain. This is noted on the left as well. Standing from seated position exacerbates symptoms. Ambulation causes increase in pain. ASSESSMENT: 1. Bilateral sacroiliac joint dysfunction. 2. Thoracolumbar scoliosis. 3. Spondylosis of the lumbar spine. 4. Low back pain. 5. Chronic intractable pain. PLAN: 1. The patient has returned today in followup visit requesting right sacroiliac joint injection under fluoroscopic guidance. The patient has done very well with previous SI joint injections with Dr. Kojo Mak. She has been scheduled today's appointment to undergo a right SI joint injection per her request. We have advised the patient of the risks and benefits of this procedure. These risks include but are not necessarily limited to bleeding, bruising, infection, worsening of pain, no relief of pain, also risk of temporary or permanent muscle weakness, temporary or permanent nerve damage, possible joint destruction and . The patient states understood and wished to proceed. 2. No medication changes made at today's visit. The patient to continue current medical therapy as previously prescribed. 3. We will see the patient back in followup visit on an as needed basis for possible repeat right SI joint injection or to address her left SI joint, which is beginning to become problematic. PROCEDURE NOTE DESCRIPTION OF PROCEDURE: Right sacroiliac joint injection under fluoroscopic guidance. This is the first procedure of the fourth series that the patient is undergoing. [address] [address] PAIN MANAGEMENT CONSULTATION Name: MERCEDES PEDRAZA Room #: REG MICHAEL Asif#: [id number] Admission: 03/17/18 Attend Phys: Albin Mak DO Discharge: Date of : 45 Report #: [id number] After obtaining written consent, the patient was taken back to the fluoroscopy suite and placed in a prone position with a pillow under the pelvis to decrease the lumbar lordosis. The skin of the gluteal-sacral area overlying the right sacroiliac joint was prepped and draped in an aseptic fashion. A medial to lateral oblique projection allowed separation of the anterior and posterior branches of the joint space. The skin and subcutaneous tissue overlying the target site of injection was anesthetized using 3 mL of 1% lidocaine. A 22-gauge 3-1/2 inch needle with a bent tip was directed into the inferior aspect of the sacroiliac joint using a posterior approach. Advanced the needle hub was noted once the dorsal sacroiliac and interosseous ligaments were engaged. After negative aspiration for heme, a total of 0.4 mL of Omnipaque was injected, outlining the coin-shaped inferior recess of the joint. Provocation responses consisting of intense buttock pain were negative. After negative aspiration for heme, 3 mL of a solution containing 1 mL, 40 mg/mL 40 mg total triamcinolone, 2 mL of bupivacaine 0.5% was slowly injected. The needle was then retracted approximately long-term and the needle track was flushed with 1 mL of lidocaine 1%. Needle was then removed. A sterile bandage was placed over the injection site. There were no new sensory deficits present in the lower extremities. The heart rate, pulse oximetry and blood pressure were continuously monitored after the procedure. There were no apparent complications. The patient tolerated the procedure well and was carefully escorted to the recovery room in stable condition. The VAS was 6-7/10 before the procedure and 3/10 ten minutes after the procedure. After meeting discharge criteria, the patient was discharged home. <ELECTRONICALLY SIGNED> By: Albin Mak DO 03/23/18 1300 0741 0840 Albin Mak DO /nt
[2018-03-17 12:55] VITALS: BP 135/64
== END | disposition home or self-care (01) ==
LOC: PAIN 06:52
DX: M53.3 Sacrococcygeal disorders, not elsewhere classified (principal); M41.85 Other forms of scoliosis, thoracolumbar region; M47.896 Other spondylosis, lumbar region; M54.5 Low back pain; I10 Essential (primary) hypertension; M19.90 Unspecified osteoarthritis, unspecified site; G89.29 Other chronic pain; Z88.2 Allergy status to sulfonamides; Z79.899 Other long term (current) drug therapy; Z79.82 Long term (current) use of aspirin; Z79.01 Long term (current) use of anticoagulants

== ENCOUNTER → 2018-03-24 | Outpatient (CLI) | payer OTHER ==
[~2018-03-24] VITALS: Ht 149.9 cm; Wt 68.5 kg
--- NOTE | ~2018-03-24 | HPC ---
[facility] [place] [address] [address] PAIN MANAGEMENT CONSULTATION Name: MERCEDES PEDRAZA Room #: REG [facility] Yefri#: [id number] Admission: 03/24/18 Attend Phys: Albin Mak DO Discharge: Date of : 45 Report #: [id number] THIS REPORT FOR: //name// CC: Albin Kulkarni DATE OF SERVICE: 03/24/2018 CHIEF COMPLAINT: Bilateral upper buttock pain secondary to SI joint dysfunction. HISTORY OF PRESENT ILLNESS: As you know, the patient is a 72-year-old female who returns today in followup visit having undergone right SI joint injection at last visit to now complete the left SI joint injection. The patient suffers from bilateral SI joint dysfunction secondary to changes in gait due to bilateral hip arthroplasties. She underwent right SI joint injection at last visit with reported 75% improvement in overall pain. She returns today with pain level of 7/10 involving left SI joint injection to undergo the second portion of this procedure. She has denied new injury, new trauma or any changes in medical history since our visit of 03/17/2018. ALLERGIES: SULFA. CURRENT MEDICATIONS: Levothyroxine, acetaminophen and ferrous sulfate, quinapril, diclofenac, baclofen, Myrbetriq, Prolia, potassium, furosemide, vitamin B6, vitamin B12, folic acid, ascorbic acid, calcium carbonate, omega 3 fish oil, Enbrel, atenolol, aspirin, atorvastatin, nortriptyline, cholecalciferol. SOCIAL HISTORY: The patient reports herself a nonsmoker. Denies IV or illicit drug use. Denies any chronic alcohol use. She is retired. She is unaccompanied today. IMAGING: No new imaging available. PQRS: The patient has osteoarthritis of the bilateral upper extremities, bilateral lower extremities and bilateral knees. 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 She also has a diagnosis of rheumatoid arthritis for which she is being treated. She places pain intensity today 12/29. She is a fall risk, but has not had a fall in the last 3 months. She does use a cane for ambulation. She is on blood thinners in the form of the Effient, which she has stopped in preparation for today's procedure. She is treated for hypertension. She is not on opioids. She has a low opioid addiction potential. [address] [address] PAIN MANAGEMENT CONSULTATION Name: MERCEDES PEDRAZA Room #: REG MICHAEL Asif#: [id number] Admission: 03/24/18 Attend Phys: Albin Mak DO Discharge: Date of : 45 Report #: [id number] PHYSICAL EXAMINATION: VITAL SIGNS: Blood pressure 123/64, pulse 70, respiratory rate 16 and unlabored. The patient is 98% on room air. Height 4 feet 11 inches tall, weight 151 pounds, BMI calculated at 30.5. GENERAL: Well-developed, well-nourished, well-hydrated 72-year-old female appearing stated age, placing current pain score 7/10. HEENT: Normocephalic, atraumatic. Pupils equal, round, reactive to light. EXTREMITIES: Show no clubbing, no cyanosis, no edema. MUSCULOSKELETAL: The patient has thoracolumbar scoliosis with a very antalgic gait. Tenderness to palpation over the paraspinal musculature of lower lumbar spine. Deep palpation over the SI joint on the left causes intensification of pain. Significant improvement on the right. Well-healed surgical scars from total hip arthroplasties. Deep palpation over the sacrum does not cause any change in overall pain nor over coccyx. ASSESSMENT: 1. Bilateral sacroiliac joint dysfunction. 2. Thoracic lumbar scoliosis. 3. Spondylosis of the lumbar spine without radiculopathy. 4. Chronic low back pain. 5. Chronic intractable pain. PLAN: 1. The patient returns today in followup visit noting a 75% improvement in overall pain with the right SI joint injection. She continues to experience left SI joint pain and has returned today remaining off her Effient to undergo left SI joint injection. The patient has been advised of the risks and the benefits of this procedure. These risks include but are not necessarily limited to bleeding, bruising, infection, worsening pain, no relief of pain, also risk of temporary or permanent muscle weakness, temporary or permanent nerve damage, possible paralysis and . The patient states she understood and wished to proceed. 2. No medication changes made at today's visit. The patient to continue current medical therapy as previously prescribed. 3. The patient will return to our clinic on an as needed basis for next in the series of SI joint injections. She is to restart her Effient today. PROCEDURE NOTE DESCRIPTION OF PROCEDURE: Left SI joint injection under fluoroscopic guidance. This is the first procedure of the fourth series that the patient is undergoing. After obtaining written consent, the patient was taken back to the fluoroscopy suite and placed in a prone position with a pillow under the pelvis to decrease the lumbar lordosis. The skin of the gluteal-sacral area overlying the left [address] [address] PAIN MANAGEMENT CONSULTATION Name: MERCEDES PEDRAZA Room #: REG MICHAEL Asif#: [id number] Admission: 03/24/18 Attend Phys: Albin Mak DO Discharge: Date of : 45 Report #: [id number] sacroiliac joint was prepped and draped in an aseptic fashion. A medial to lateral oblique projection allowed separation of the anterior and posterior branches of the joint space. The skin and subcutaneous tissue overlying the target site of injection was anesthetized using 3 mL of 1% lidocaine. A 22-gauge, 3-1/2-inch needle with a bent tip was directed into the inferior aspect of the sacroiliac joint using a posterior approach. A "giving way" at the needle hub was noted once the dorsal sacroiliac and interosseous ligaments were engaged. After negative aspiration for heme, a total of 0.6 mL of Omnipaque was injected, outlining the coin-shaped inferior recess of the joint. Provocation responses consisting of intense buttock pain were negative. After negative aspiration for heme, 3 mL of a solution containing 1 mL 40 mg per mL 80 mg total of triamcinolone, 3 mL of lidocaine 1% was slowly injected. The needle was then retracted approximately alf and the needle track was flushed with 1 mL of 1% lidocaine. Needle was then removed. A sterile bandage was placed over the injection site. There were no new sensory deficits present in the lower extremities. The heart rate, pulse oximetry and blood pressure were continuously monitored after the procedure. There were no apparent complications. The patient tolerated the procedure well and was carefully escorted to the recovery room in stable condition. The VAS was 7/10 before the procedure and 0/10 ten minutes after the procedure. After meeting discharge criteria, the patient was discharged home. <ELECTRONICALLY SIGNED> By: Albin Mak DO 03/30/18 0727 0759 0942 Albin Mak DO /nt
[2018-03-24 11:09] VITALS: BP 123/64
== END | disposition home or self-care (01) ==
LOC: PAIN 06:56
DX: M53.3 Sacrococcygeal disorders, not elsewhere classified (principal); M41.85 Other forms of scoliosis, thoracolumbar region; M19.90 Unspecified osteoarthritis, unspecified site; M54.5 Low back pain; M47.816 Spondylosis without myelopathy or radiculopathy, lumbar region; G89.29 Other chronic pain; Z88.2 Allergy status to sulfonamides; Z79.899 Other long term (current) drug therapy; Z79.01 Long term (current) use of anticoagulants; Z98.890 Other specified postprocedural states

== ENCOUNTER → 2018-03-29 | Outpatient (CLI) | payer OTHER ==
[~2018-03-29] VITALS: Ht 149.9 cm; Wt 66.2 kg
--- NOTE | ~2018-03-29 | P ---
[facility] [place] [address] PROCEDURE REPORT Name: MERCEDES PEDRAZA Room #: REG [facility]#: [id number] Admission: 03/29/18 Attend Phys: Benjie Dickson MD Discharge: Date of : 45 Report #: [id number] THIS REPORT FOR: //name// CC: KOKO Kulkarni BRIEF HISTORY: The patient is a 72-year-old woman with family history of colon cancer, sister diagnosed in the late 50s or early 60s and also episode of colitis with rectal bleeding last year while on anticoagulation. PREOPERATIVE DIAGNOSIS: Family history of colon cancer, sister and colitis with bleeding. POSTOPERATIVE DIAGNOSIS: Questionable patchy proximal colitis. MEDICATIONS: Deep sedation with propofol per anesthesia. SPECIMEN: Random biopsies, proximal colon, rule out colitis. ESTIMATED BLOOD LOSS: 3 mL. PROCEDURE: Colonoscopy to cecum and terminal ileum with biopsy. FINDINGS: Prior to propofol sedation, procedure of colonoscopy was discussed with the patient as well as potential risks and its complications. She indicates she understands and desires to proceed. DESCRIPTION OF PROCEDURE: With the patient in left lateral decubitus position, digital examination was completed, which revealed no abnormalities. Subsequently, the [employer] video colonoscope was introduced in the rectum and advanced under direct vision to the cecum. Done with minimal difficulty. The cecum was identified by the ileocecal valve and the appendiceal orifice. I was able to visualize the distal segment of the terminal ileum, which was inspected and noted to be unremarkable. There was no evidence of inflammatory disease. At that point, scope was slowly withdrawn and careful circumferential views were obtained. She did have colitis a year ago while on anticoagulation. CT revealed thickening of the transverse, descending and sigmoid colon. The mucosa was intact and not ulcerated, but there was some loss of vascularity and erythema that potentially could be prep effect as well. Multiple biopsies were obtained. As we withdrew the scope to the remainder of the colon, the prep was noted to be good. The mucosa was otherwise within normal limits, normal vascular pattern, normal light reflex. No neoplastic or inflammatory changes were seen. Scope was withdrawn in the rectum and upon retroflexion, no abnormalities were seen. Scope was withdrawn. The patient tolerated the procedure well. [address] [address] PROCEDURE REPORT Name: MILO,MERCEDES C [id number] Admission: 03/29/18 Attend Phys: Benjie Dickson MD Discharge: Date of : 45 Report #: [id number] CONDITION OF THE PATIENT UPON DISCHARGE: Following procedure, the patient drowsy and arousable. She will be discharged home when fully ambulatory. INSTRUCTIONS TO THE PATIENT AND FAMILY AT THE TIME OF DISCHARGE: No inflammatory neoplastic changes seen. We will follow up on biopsies obtained today with regards to the colitis. With regards to surveillance, due to her family history, suggest she return in 5 years. As for her colitis, she had resolution of symptoms within days after her episode last year. There was no evidence of colitis in the transverse, descending or sigmoid colons. I suspect that was an acute self-limited process with bleeding exacerbated by her use of anticoagulants at that time. Last colonoscopy was more than 8 years ago. Withdrawal time from cecum was 12 minutes 40 seconds. <ELECTRONICALLY SIGNED> By: Benjie Dickson MD 03/30/18 1158 0921 18 Benjie Dickson MD /nt
--- NOTE | ~2018-03-29 | PATH ---
[facility] [address] [place] [address] PATHOLOGY RPT PROCEDURE Name: MERCEDES PEDRAZA Maya Room #: REG [facility] Richa.#: [id number] Admission: 03/29/18 Date of : 45 Discharge: Report #: [id number] Path Case #: [id number] [facility] Accession Number: [id number] . 01 Material submitted: . BX OF PROXIMAL COLON R/O COLITIS . 01 Clinical history: . Pre-OP DX: Screening Post-OP DX: Colitis . 02 Diagnosis: Large intestinal mucosa, proximal colon rule out colitis, endoscopic biopsy: - Mild active colitis. - Negative for features of microscopic colitis. - Negative for dysplasia or malignancy. RUST/03/30/2018 . 02 Comment: Sections of the colonic mucosa designated "proximal colon" show focal cryptitis, and a moderately cellular lamina propria composed predominantly of lymphocytes and plasma cells and occasional eosinophils. Surface ulceration is not identified. There are no crypt abscesses, granulomas or viral inclusions. The process affects all the fragments with a similar intensity. Given the description, the differential diagnosis includes acute colitis of self-limited etiology, infectious etiology, medication related, or drug-induced etiology, and early inflammatory bowel disease amongst others. Please correlate with clinical as well as endoscopic findings. (IUV:pit 03/30/2018) . 02 Electronically signed: . Melissa Villa MD, Pathologist NPI- [id number] . 01 Gross description: . Received in formalin labeled "Mercedes Pedraza BX of proximal colon, rule out colitis," are 4 segments of dougherty soft tissue measuring 1.5 x 0.7 x 0.2 cm in aggregate dimensions and ranging from 0.3 to 0.4 cm in maximum dimension. The specimen is submitted entirely in cassette A1. (TSD; 03/29/2018) TOB/TOB . 02 Pathologist provided ICD-10: K52.9 . [address] [place] [address] PATHOLOGY RPT PROCEDURE Name: MERCEDES PEDRAZA Maya Room #: REG [facility]#: [id number] Admission: 03/29/18 Date of : 45 Discharge: Report #: [id number] Path Case #: [id number] [facility] . [id number] Specimen Comment: A courtesy copy of this report has been sent to Specimen Comment: [phone], . Specimen Comment: Report sent to / DR MENARD Performed at: [address] [facility], [place], [place] [id number] MD Sam Mercer MD Phone: [phone] Performed at: [address] [facility] [id number] MD Melissa Villa MD Phone: [phone]
== END | disposition home or self-care (01) ==
LOC: GI 07:21
DX: K52.9 Noninfective gastroenteritis and colitis, unspecified (principal); D72.829 Elevated white blood cell count, unspecified; I10 Essential (primary) hypertension; E78.5 Hyperlipidemia, unspecified; I48.91 Unspecified atrial fibrillation; K21.9 Gastro-esophageal reflux disease without esophagitis; M06.9 Rheumatoid arthritis, unspecified; E03.9 Hypothyroidism, unspecified; Z80.0 Family history of malignant neoplasm of digestive organs; Z88.2 Allergy status to sulfonamides; Z79.899 Other long term (current) drug therapy; Z95.5 Presence of coronary angioplasty implant and graft; Z85.828 Personal history of other malignant neoplasm of skin; Z96.653 Presence of artificial knee joint, bilateral; Z98.890 Other specified postprocedural states
CPT/HCPCS: 62110; 62900

== ENCOUNTER 2018-06-15 20:52 | Inpatient (IN) | payer OTHER ==
[~2018-06-15] VITALS: Ht 149.9 cm; Wt 65.8 kg
[2018-06-15 21:01] VITALS: BP 138/71
[2018-06-15 22:52] LABS: ABSOLUTE NEUTROPHILS 5.2 thou/uL (1.4-8.2); BASOPHILS 0.9 % (0.0-2.0); EOSINOPHILS 1.8 % (0.0-3.0); HEMOGLOBIN 13.7 gm/dL (12.0-15.0); LYMPHOCYTES 15.6 % (24.0-44.0); MCH 30.4 pg (26.0-34.0); MCHC 33.4 g/dL (28.0-37.0); MCV 91.2 fL (80.0-100.0); MONOCYTES 11.7 % (1.0-8.0); PLATELET COUNT 213 thou/uL (150-400); RDW 18.8 % (10.5-14.5); WBC 7.5 thou/uL (4.0-11.0)
[2018-06-15 22:58] LABS: CALCIUM 9.8 mg/dL (8.5-10.1); CREATININE 1.2 mg/dL (0.6-1.0)
[2018-06-15 23:00] VITALS: BP 138/71
[2018-06-15 23:02] LABS: POTASSIUM 4.7 mmol/L (3.5-5.1)
[2018-06-15 23:18] VITALS: BP 127/77
[2018-06-15 23:30] VITALS: BP 145/76
[2018-06-16 05:17] VITALS: BP 113/53
[2018-06-16 08:20] VITALS: BP 124/55
[2018-06-16 15:48] VITALS: BP 133/60
[2018-06-16 20:01] VITALS: BP 116/62
[2018-06-17 04:07] VITALS: BP 110/56
[2018-06-17 08:29] VITALS: BP 103/52
[2018-06-17 16:05] VITALS: BP 103/52
== END 2018-06-17 17:30 | disposition home health service (06) | DRG 205 ==
LOC: ER 20:52 → EROBS 22:29 → 4W 22:29
PROVIDERS: Student in an Organized Health Care Education/Training Program
DX: S22.31XA Fracture of one rib, right side, initial encounter for closed fracture (principal); E43 Unspecified severe protein-calorie malnutrition; Z96.651 Presence of right artificial knee joint; I10 Essential (primary) hypertension; M06.9 Rheumatoid arthritis, unspecified; E78.5 Hyperlipidemia, unspecified; K21.9 Gastro-esophageal reflux disease without esophagitis; I48.91 Unspecified atrial fibrillation; E03.9 Hypothyroidism, unspecified; Z88.2 Allergy status to sulfonamides; W18.39XA Other fall on same level, initial encounter; Y93.89 Activity, other specified; Y92.89 Other specified places as the place of occurrence of the external cause; Y99.8 Other external cause status; Z79.82 Long term (current) use of aspirin; Z79.899 Other long term (current) drug therapy
CPT/HCPCS: 10040

== ENCOUNTER → 2018-07-27 | Outpatient (CLI) | payer OTHER ==
[~2018-07-27] VITALS: Ht 149.9 cm; Wt 68.7 kg
[~2018-07-27] MED LIST changes: +ORENCIA 25250 MG/VIA IV
[2018-07-27 09:40] VITALS: BP 120/63
--- NOTE | 2018-07-27 10:13 | NUR ---
Pain Clinic Assessment: 1. History of Osteoarthritis: Left Upper Extremity Right Upper Extremity History of Rheumatoid Arthritis: Left Upper Extremity Right Upper Extremity 2. Height: 4 ft. 11 in. 149.9 cm. Weight: 151.4 lb. oz. 68.675 kg. Patient's BMI: 30.6 3. Vital Signs: BP: 120/63 Pulse: 70 Resp: 14 Temp: 02 Sat: 100 ECG Mon: 4. Pain Intensity: 7 5. Fall Risk: Dizziness: N Needs help standing or walking: Y Fallen in the last 3 months: Y Fall risk comments: 6. Patient on Blood Thinner: None 7. History of Hypertension: Y 8. Opioid Therapy greater than 6 weeks: N Opiate Contract Signed: 9. Risk Assessment Tool Provided: 10. Functional Assessment Tool: 11. Recreational Drug Use: Never Drug Type: Tobacco Use: Never Smoker Tobacco Type: Amount or Packs/day: How Many Years: Alcohol Use: Yes Frequency: Quant:
--- NOTE | 2018-07-28 10:54 | HPC ---
[facility] [address] [place] [address] PAIN MANAGEMENT CONSULTATION Name: MILOMERCEDES THOMAS Room #: REG MICHAEL Asif#: [id number] Admission: 07/27/18 Attend Phys: Albin Mak DO Discharge: Date of : 45 Report #: [id number] THIS REPORT FOR: //name// CC: Albin Kulkarni MD DATE OF SERVICE: 07/27/2018 CHIEF COMPLAINT: Right sacroiliac joint pain, intermittent left SI joint pain. HISTORY OF PRESENT ILLNESS: As you know, the patient is a 72-year-old female, followed by my partner, Dr. Kojo Mak, for years for SI joint dysfunction. She has undergone SI joint injections, most recently on the left side in 03/24/2018 with good efficacy. She returns today in followup visit with unfortunate to recurrence of right SI joint dysfunction, now placing pain score at 7/10. She returns today to undergo SI joint injection on the right side. ALLERGIES: SULFA. CURRENT MEDICATIONS: Levothyroxine, acetaminophen, ferrous sulfate, quinapril, diclofenac, baclofen, Myrbetriq, Prolia, potassium, furosemide, vitamin B12, vitamin B6, folic acid, ascorbic acid, calcium carbonate, omega 3 fish oil, Enbrel, atenolol, aspirin, atorvastatin, nortriptyline, and cholecalciferol. SOCIAL HISTORY: The patient reports herself a nonsmoker. Denies IV or illicit drug use. Denies any chronic alcohol use. She is retired, unaccompanied today. IMAGING: No new imaging available. PQRS: The patient has known osteoarthritic changes of the bilateral upper extremities, bilateral SI joints, bilateral lumbar spine and bilateral knees. 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 She has a diagnosis of rheumatoid arthritis, for which she is being treated. She is placing pain score today 7/10. She is a fall risk, has had a fall in the last 3 months, but is utilizing a cane and roller walker for ambulation and we have advised her to use these consistently. She is on no blood thinners, but is treated for hypertension. She has been on no long-term opioid. She has a low risk of opioid addiction. Pain impact tool 40/70, indicating [id number] interference of daily activities secondary to pain. PHYSICAL EXAMINATION: VITAL SIGNS: Blood pressure 120/63, pulse 70, respiratory rate 14 and unlabored. The patient is 100% on room air. Height 4 feet 11 inches tall, weight 151.4 pounds, BMI calculated 30.6. GENERAL: Well-developed, well-nourished, well-hydrated 72-year-old female, [place] [address] PAIN MANAGEMENT CONSULTATION Name: MERCEDES PEDRAZA [facility] [id number] Admission: 07/27/18 Attend Phys: Albin Mak DO Discharge: Date of : 45 Report #: [id number] appears her stated age, placing current pain score 7/10. HEENT: Normocephalic, atraumatic. Pupils equal, round, reactive to light. EXTREMITIES: Show no clubbing, no cyanosis, no edema. MUSCULOSKELETAL: There is palpatory tenderness noted over the paraspinal musculature of lower lumbar spine bilaterally today, right greater than left. Deep palpation of the SI joint, both left and right cause intensification of pain, right greater than left. Well-healed surgical scars from total hip arthroplasty is noted. ASSESSMENT: 1. Bilateral sacroiliac joint dysfunction. 2. Thoracolumbar scoliosis. 3. Lumbosacral spondylosis without radiculopathy. 4. Chronic axial back pain. 5. Chronic intractable pain. PLAN: 1. The patient returns today in followup visit, requesting to undergo right SI joint injection to address the intense pain she is experiencing in the low back, right buttock area. She has done very well with previous SI joint injections, receiving these on an every other month basis. This does keep the patient more functional. She is able to go about her activities of daily living without significant pain interference until which time her symptoms returned and she does then return for SI joints to be injected. She returns today for right SI joint injection. She has been advised risks and benefits, states understood and wished to proceed. 2. No medication changes made at today's visit. The patient will continue current medical therapy as previously prescribed. I did refill her baclofen per her request, the last refill was nearly 2 years ago. I have given her baclofen 10 mg dose 1 tab p.o. at bedtime, #60, 2 refills. 3. We will see the patient back in followup visit on an as-needed basis for the next in the series of SI joint injections. PROCEDURE NOTE DESCRIPTION OF PROCEDURE: Right SI joint injection under fluoroscopic guidance. After obtaining written consent, the patient was taken back to fluoroscopy suite, placed in prone position with pillow under the pelvis to decrease lumbar lordosis. Skin of the gluteal sacral area was then prepped and draped directly overlying the right SI joint. A 27 gauge 1-1/2 inch needle was then used to anesthetize skin and subcutaneous tissue with 3 mL of 1% lidocaine. A 22-gauge 3-1/2 inch spinal needle with bent tip was directed to the inferior aspect of the sacroiliac joint using a posterior approach. The "giving away" at the needle hub was noted once the dorsal sacroiliac and interosseous ligaments [address] [address] PAIN MANAGEMENT CONSULTATION Name: MILOMERCEDES Maya [facility] [id number] Admission: 07/27/18 Attend Phys: Albin Mak DO Discharge: Date of : 45 Report #: [id number] were engaged. After negative aspiration for heme, a total of 0.5 mL of Omnipaque injected, outlining the inferior recess of the joint. Provocation responses, consistent of intense buttock pain were negative. After negative aspiration for heme, 3 mL solution containing 1 mL 40 mg per mL, 40 mg total triamcinolone, 2 mL bupivacaine 0.5% injected slowly. Needle retracted care home, flushed with 1 mL of 1% lidocaine and then removed. Sterile bandage was then placed over injection site. There were no new motor deficits present in lower extremity following procedure. The patient tolerated procedure well, carefully escorted to recovery room in stable condition. No apparent complications. After meeting discharge criteria, the patient discharged home. <ELECTRONICALLY SIGNED> By: Albin Mak DO 07/28/18 1054 0834 0930 Albin Mak DO /nt
== END | disposition home or self-care (01) ==
LOC: PAIN 06:49
DX: M53.3 Sacrococcygeal disorders, not elsewhere classified (principal); G89.29 Other chronic pain; M41.85 Other forms of scoliosis, thoracolumbar region; M47.817 Spondylosis without myelopathy or radiculopathy, lumbosacral region; M19.90 Unspecified osteoarthritis, unspecified site; I10 Essential (primary) hypertension; M06.9 Rheumatoid arthritis, unspecified; Z88.2 Allergy status to sulfonamides; Z79.82 Long term (current) use of aspirin; Z98.890 Other specified postprocedural states; Z79.899 Other long term (current) drug therapy

== ENCOUNTER → 2018-09-08 | Outpatient (CLI) | payer OTHER ==
[~2018-09-08] VITALS: Ht 149.9 cm; Wt 66.7 kg
[2018-09-08 10:47] VITALS: BP 140/72
--- NOTE | 2018-09-08 10:50 | NUR ---
Pain Clinic Assessment: 1. History of Osteoarthritis: Left Upper Extremity Right Upper Extremity History of Rheumatoid Arthritis: Left Upper Extremity Right Upper Extremity 2. Height: 4 ft. 11 in. 149.9 cm. Weight: 147.0 lb. oz. 66.679 kg. Patient's BMI: 29.7 3. Vital Signs: BP: 140/72 Pulse: 104 Resp: 18 Temp: 02 Sat: 99 ECG Mon: 4. Pain Intensity: 8 5. Fall Risk: Dizziness: N Needs help standing or walking: N Fallen in the last 3 months: N Fall risk comments: 6. Patient on Blood Thinner: None 7. History of Hypertension: Y 8. Opioid Therapy greater than 6 weeks: N Opiate Contract Signed: 9. Risk Assessment Tool Provided: LOW RISK-0 10. Functional Assessment Tool: 11. Recreational Drug Use: Never Drug Type: Tobacco Use: Never Smoker Tobacco Type: Amount or Packs/day: How Many Years: Alcohol Use: No Frequency: Quant:
--- NOTE | 2018-09-15 07:50 | HPC ---
[facility] [address] [place] [address] PAIN MANAGEMENT CONSULTATION Name: MERCEDES PEDRAZA Maya [facility] #: [facility] [id number] Admission: 09/08/18 ������������������ Attend Phys: Albin Mak DO Discharge: ������������������ Date of : 45 Report #: [id number] THIS REPORT FOR: //name// CC: Albin Kulkarni DATE OF SERVICE: 09/08/2018 REFERRING PHYSICIAN: Ravi Kulkarni MD CHIEF COMPLAINT: Left sacroiliac joint pain. HISTORY OF PRESENT ILLNESS: As you know, the patient is a 73-year-old female who has had extensive surgical repairs of the bilateral hips that continues to experience SI joint dysfunction. She returns today requesting left SI joint injection as she has noted good benefit with each of the previous injections. She returns stating her pain has begun to intensify, now rating pain at 8/10. States the pain as pressure, sharp and stabbing in sensation, exacerbated with walking and standing, worse in the morning, improves with sitting and repositioning. She returns for left SI joint injection under fluoroscopic guidance for which the last injection gave 50-60% improvement in overall pain. She denies new injury or trauma or any changes in medical history since our last visit. ALLERGIES: SULFA. CURRENT MEDICATIONS: Baclofen, Orencia, omeprazole, levothyroxine, folic acid, methotrexate, acetaminophen, quinapril, Voltaren, Myrbetriq, Prolia, potassium chloride, furosemide, vitamin B12, ascorbic acid, omega-3 fish oil, atenolol, aspirin, atorvastatin, nortriptyline, cholecalciferol. SOCIAL HISTORY: The patient denies tobacco, alcohol, IV or illicit drug use. She is unaccompanied today. IMAGING: No new imaging available. PQRS: The patient has known arthritic changes of the bilateral upper extremities, SI joints, bilateral lumbar spine and bilateral knees. She has total hips secondary to osteoarthritis. She has a diagnosis of rheumatoid arthritis and being treated. She is a fall risk, has not had a fall in the last 3 months. She uses a cane and a roller walker for ambulation. She is not on any blood thinners, but is treated for hypertension. She is not on any long-term opioid medications. She is a low risk for opioid addiction. Pain impact today rated at 29/70, moderate interference of daily activities secondary to pain. [address] [address] PAIN MANAGEMENT CONSULTATION Name: MERCEDES PEDRAZA Room #: REG [facility] Yefri#: [id number] Admission: 09/08/18 ������������������ Attend Phys: Albin Mak DO Discharge: ������������������ Date of : 45 Report #: [id number] PHYSICAL EXAMINATION: VITAL SIGNS: Blood pressure 140/72, pulse 104, respiratory rate 18 and unlabored. The patient is 99% on room air. Height 4 feet 11 inches tall, weight 147 pounds, BMI calculated at 29.7. GENERAL: Well-developed, well-nourished, well-hydrated 73-year-old female appearing her stated age, pain is rated around 9/10. HEENT: Normocephalic, atraumatic. EXTREMITIES: Show no clubbing, no cyanosis, no edema. MUSCULOSKELETAL: There is palpatory tenderness noted over the paraspinal musculature of lower lumbar spine, left greater than right today. Deep palpation over the left SI joint causes intensification of pain as does with the right, greater on left. Well-healed surgical scars from total hips bilaterally. ASSESSMENT: 1. Left sacroiliac joint pain. 2. Right sacroiliac joint pain. 3. Bilateral sacroiliac joint dysfunction. 4. Thoracolumbar scoliosis. 5. Lumbosacral spondylosis without radiculopathy. 6. Chronic axial back pain. 7. Chronic intractable pain. PLAN: 1. The patient returns in followup visit requesting to undergo a left SI joint injection under fluoroscopic guidance. As you are aware, the patient has bilateral SI joint dysfunction. At last visit, she underwent a right SI joint injection with good benefit. Unfortunately, her left side has progressively worsened. No inciting injury or trauma. She returns to undergo the procedure today. We have discussed the risks and the benefits of the procedure. She states understood and wished to proceed. 2. The patient and I had a very long discussion about our concern about steroid exposure. She is receiving steroids about every 2 months into the SI joints. This has been going on since 2013. I believe her exposure to steroids could become quite problematic and is concerning. I have voiced my concern with the patient today. I understand that she has a little opportunity to look towards other treatment options, though she would be a candidate for SI joint fusion possibly, which will decrease any movement across the SI joint, reducing her overall pain. She is going to consider this as an option, but today wishes to undergo intra-articular SI joint injection on the left. 3. No medication changes made at today's visit. The patient is to continue current medical therapy as previously prescribed. 4. We will see the patient back in followup visit on an as needed basis. PROCEDURE NOTE [address] [address] PAIN MANAGEMENT CONSULTATION Name: MERCEDES PEDRAZA Room #: REG [facility] Hermilo#: [id number] Admission: 09/08/18 ������������������ Attend Phys: Albin Mak DO Discharge: ������������������ Date of : 45 Report #: [id number] PROCEDURE: Left SI joint injection under fluoroscopic guidance. DESCRIPTION OF PROCEDURE: After obtaining written consent, the patient was taken back to fluoroscopy suite, placed in prone position with pillow under the pelvis to decrease lumbar lordosis. Skin overlying the gluteal and sacral area was then prepped and draped in aseptic fashion overlying the left SI joint. A 27-gauge 1-1/4 inch needle was then used to anesthetize skin and subcutaneous tissue with 2 mL of 1% lidocaine. A 22-gauge 3-1/2 inch spinal needle with bent tip was directed to the inferior aspect of the sacroiliac joint using a posterior approach. The "giving away" of the needle hub was noted once the dorsal sacroiliac and interosseous ligaments were engaged. After negative aspiration for heme, a total of 0.4 mL of Omnipaque injected, outlining the inferior recess of the joint. Provocation responses consistent of intense buttock pain were negative. After negative aspiration for heme, 3 mL of a solution containing 1 mL of 40 mg per mL, 40 mg total triamcinolone, 2 mL bupivacaine 0.5% injected slowly. Needle retracted care home, flushed with 1 mL of 1% lidocaine and then removed. Sterile bandage placed over injection site. No new motor deficits present in the lower extremities following procedure. The patient tolerated procedure well, carefully escorted to recovery room in stable condition. No apparent complications. After meeting discharge criteria, the patient is discharged to home. ��������������������������������������������� <ELECTRONICALLY SIGNED> ���������������������������������������� By: Albin Mak DO ��������������������������������������������� 09/15/18 0750 1421 0319 Albin Mak DO /nt
== END | disposition home or self-care (01) ==
LOC: PAIN 07:07
DX: M53.3 Sacrococcygeal disorders, not elsewhere classified (principal); M47.817 Spondylosis without myelopathy or radiculopathy, lumbosacral region; G89.29 Other chronic pain; M41.85 Other forms of scoliosis, thoracolumbar region; M06.9 Rheumatoid arthritis, unspecified; M54.9 Dorsalgia, unspecified; I10 Essential (primary) hypertension; M19.90 Unspecified osteoarthritis, unspecified site; Z79.899 Other long term (current) drug therapy; Z96.643 Presence of artificial hip joint, bilateral; Z88.2 Allergy status to sulfonamides; Z98.890 Other specified postprocedural states; Z79.82 Long term (current) use of aspirin

== ENCOUNTER → 2018-09-13 | Outpatient (CLI) | payer OTHER | LOC: BC 13:53 | DX: Z12.31 Encounter for screening mammogram for malignant neoplasm of breast (principal) ==

== ENCOUNTER → 2018-10-06 | Outpatient (CLI) | payer OTHER ==
[~2018-10-06] VITALS: Ht 149.9 cm; Wt 67.1 kg
--- NOTE | ~2018-10-06 | HPC ---
[facility] [address] [place] [address] PAIN MANAGEMENT CONSULTATION Name: MERCEDES PEDRAZA Room #: REG [facility]#: [id number] Admission: 10/06/18 ������������������ Attend Phys: Albin Mak DO Discharge: ������������������ Date of : 45 Report #: [id number] THIS REPORT FOR: //name// CC: BLAYNE Dobbs MD DATE OF SERVICE: 10/06/2018 REFERRING PHYSICIAN: Anibal Martinez MD CHIEF COMPLAINT: SI joint pain. HISTORY OF PRESENT ILLNESS: As you know, the patient is a 73-year-old female with longstanding history of bilateral SI joint pain. She has been referred back to our clinic to undergo diagnostic blocks as part of the workup protocol for the iFuse procedure. She returns today with pain level 5-6/10. States her pain is pressure, sharp, stabbing in sensation, exacerbated with walking and standing, improves with seated position, heat, medications, exacerbated with wearing specific shoes and ambulating on stairs. She returns today to undergo diagnostic block in preparation for possible fusion of the sacroiliac joint. ALLERGIES: SULFA. CURRENT MEDICATIONS: See extensive list in chart. SOCIAL HISTORY: The patient denies tobacco, alcohol, IV or illicit drug use. She is unaccompanied today. IMAGING: No new imaging available. PQRS: The patient has arthritic changes in the bilateral upper extremities, SI joints, bilateral lumbar spine and bilateral knees. She has total hip secondary to osteoarthritis. She has a diagnosis of rheumatoid arthritis and is being treated for such. She is a fall risk, but has not had fallen in the last 3 months. She uses a cane and a roller walker for ambulation. She is not on blood thinners. She is treated for hypertension. She is not on long-term opioids and has a low opioid addiction potential. She is placing pain impact score 29/70, moderate interference of daily activities secondary to pain. PHYSICAL EXAMINATION: VITAL SIGNS: Blood pressure 147/74, pulse 74, respiratory rate 16 and unlabored. The patient is 100% on room air. Height 4 feet 11 inches tall, weight 148 pounds, BMI calculated at 29.9. GENERAL: Well-developed, well-nourished, well-hydrated 73-year-old female [address] [address] PAIN MANAGEMENT CONSULTATION Name: MERCEDES PEDRAZA Room #: REG [facility].#: [id number] Admission: 10/06/18 ������������������ Attend Phys: Albin Mak DO Discharge: ������������������ Date of : 45 Report #: [id number] appearing stated age, placing pain score at 7/10. HEENT: Normocephalic, atraumatic. Pupils equal, round, reactive to light. EXTREMITIES: Show no clubbing, no cyanosis, and no edema. MUSCULOSKELETAL: Palpatory tenderness noted over the paraspinal musculature of lower lumbar spine, no spinous process tenderness. Deep palpation over the SI joints cause intensification of pain. There is noted gross abnormality of the SI joint with a tilt and rotation noted. Well-healed surgical scars from total hips are noted. ASSESSMENT: 1. Right sacroiliac joint dysfunction. 2. Left sacroiliac joint dysfunction. 3. Bilateral sacroiliac joint pain. 4. Thoracolumbar scoliosis. 5. Lumbosacral spondylosis without radiculopathy. 6. Chronic axial back pain. 7. Chronic intractable pain. PLAN: 1. The patient has been referred back to our clinic by Dr. Anibal Martinez and his nurse practitioner, Natasha Nichole to undergo diagnostic SI joint blocks in preparation for possible iFuse procedure to be performed on the bilateral SI joints. This is part of the trial and preoperative evaluation is to determine if SI joint fusions will improve the patient's overall pain. She has returned to undergo this procedure today. The patient was advised risks and benefits of SI joint blocks. These risks include but are not necessarily limited to bleeding, bruising, infection, worsening pain, no relief of pain, also risk of temporary or permanent muscle weakness, temporary or permanent nerve damage, possible paralysis, joint destruction and . The patient states she understood and wished to proceed. 2. No medication changes made at today's visit. The patient will continue current medical therapy as previously prescribed. 3. We will see the patient back in followup visit next week to undergo left SI joint diagnostic block. After obtaining written consent, the patient was taken to the fluoroscopy suite, placed in prone position with pillow under abdomen to decrease lumbar lordosis. Skin overlying the gluteal area was then prepped and draped in aseptic fashion using chlorhexidine. A medial to lateral oblique projection allowed separation of the anterior and posterior branches of the joint space to be visualized. Skin and subcutaneous tissue overlying target site of injection was anesthetized with 3 mL of 1% lidocaine. A 22-gauge 3-1/2 inch spinal needle with bent tip was directed to the inferior aspect of the sacroiliac joint on the right side using a posterior [facility] [address] [place] [address] PAIN MANAGEMENT CONSULTATION Name: MERCEDES PEDRAZA Room #: REG [facility]#: [id number] Admission: 10/06/18 ������������������ Attend Phys: Albin Mak DO Discharge: ������������������ Date of : 45 Report #: [id number] approach. A "giving away" at the needle hub was noted once the dorsal sacroiliac and interosseous ligaments were engaged. After negative aspiration for heme, 0.5 mL of Omnipaque was injected, outlining the inferior recess of the joint. There was no extravasation of contrast material outside of the joint. Provocation responses were not consistent with intense buttock pain. After negative aspiration for heme, 2 mL of bupivacaine 0.5% was injected slowly. Needle was then retracted approximately half way, flushed with 1 mL of 1% lidocaine and then removed. Sterile bandage was placed over injection site. There were no new motor deficits present in the lower extremity following procedure. The patient tolerated the procedure well, carefully escorted to recovery room in stable condition. No apparent complications. VAS before procedure rated up to 7/10, VAS 10 minutes after procedure rated at 0-1/10. After meeting our discharge criteria, the patient was then discharged home. ��������������������������������������������� ���������������������������������������� By: ��������������������������������������������� 0824 1522 Albin Mak DO /nt
[2018-10-06 09:23] VITALS: BP 147/74
--- NOTE | 2018-10-06 09:36 | NUR ---
Pain Clinic Assessment: 1. History of Osteoarthritis: LEFT SHOULDER LEFT HIP B/L KNEE'S RIGHT HAND History of Rheumatoid Arthritis: Left Upper Extremity Right Upper Extremity 2. Height: 4 ft. 11 in. 149.9 cm. Weight: 148.0 lb. oz. 67.132 kg. Patient's BMI: 29.9 3. Vital Signs: BP: 147/74 Pulse: 74 Resp: 16 Temp: 02 Sat: 100 ECG Mon: 4. Pain Intensity: 3-4-ISNRZZFRB, 7-FLARED 5. Fall Risk: Dizziness: N Needs help standing or walking: N Fallen in the last 3 months: N Fall risk comments: 6. Patient on Blood Thinner: None 7. History of Hypertension: Y 8. Opioid Therapy greater than 6 weeks: N Opiate Contract Signed: 9. Risk Assessment Tool Provided: LOW RISK-0 10. Functional Assessment Tool: 11. Recreational Drug Use: Never Drug Type: Tobacco Use: Never Smoker Tobacco Type: Amount or Packs/day: How Many Years: Alcohol Use: No Frequency: Quant:
== END | disposition home or self-care (01) ==
LOC: PAIN 06:55
DX: M53.3 Sacrococcygeal disorders, not elsewhere classified (principal); G89.29 Other chronic pain; M47.817 Spondylosis without myelopathy or radiculopathy, lumbosacral region; M41.85 Other forms of scoliosis, thoracolumbar region; I10 Essential (primary) hypertension; M19.90 Unspecified osteoarthritis, unspecified site; M06.9 Rheumatoid arthritis, unspecified; Z79.891 Long term (current) use of opiate analgesic; Z88.2 Allergy status to sulfonamides; Z98.890 Other specified postprocedural states; Z79.899 Other long term (current) drug therapy; Z79.82 Long term (current) use of aspirin

== ENCOUNTER → 2018-10-13 | Outpatient (CLI) | payer OTHER ==
[~2018-10-13] VITALS: Ht 149.9 cm; Wt 65.2 kg
[2018-10-13 09:45] VITALS: BP 127/64
--- NOTE | 2018-10-13 10:00 | NUR ---
Pain Clinic Assessment: 1. History of Osteoarthritis: LEFT SHOULDER LEFT HIP B/L KNEE'S RIGHT HAND History of Rheumatoid Arthritis: Left Upper Extremity Right Upper Extremity 2. Height: 4 ft. 11 in. 149.9 cm. Weight: 143.8 lb. oz. 65.227 kg. Patient's BMI: 29.0 3. Vital Signs: BP: 127/64 Pulse: 64 Resp: 18 Temp: 02 Sat: 99 ECG Mon: 4. Pain Intensity: 5-6 5. Fall Risk: Dizziness: N Needs help standing or walking: Y Fallen in the last 3 months: N Fall risk comments: 6. Patient on Blood Thinner: None 7. History of Hypertension: Y 8. Opioid Therapy greater than 6 weeks: N Opiate Contract Signed: 9. Risk Assessment Tool Provided: LOW RISK-0 10. Functional Assessment Tool: 11. Recreational Drug Use: Never Drug Type: Tobacco Use: Never Smoker Tobacco Type: Amount or Packs/day: How Many Years: Alcohol Use: No Frequency: Quant:
--- NOTE | 2018-10-20 12:39 | HPC ---
[facility] [place] [address] [place] [address] PAIN MANAGEMENT CONSULTATION Name: MERCEDES PEDRAZA Room #: REG [facility].#: [id number] Admission: 10/13/18 ������������������ Attend Phys: Albin Mak DO Discharge: ������������������ Date of : 45 Report #: [id number] THIS REPORT FOR: //name// CC: Albin Martinez MD DATE OF SERVICE: 10/13/2018 CHIEF COMPLAINT: Sacroiliac joint pain. HISTORY OF PRESENT ILLNESS: As you know, the patient is a 73-year-old female who underwent diagnostic right SI joint injection at our last visit with reported 70-80% improvement in overall pain with the right SI joint injection. She returns today to undergo left SI joint injection to determine if she might be a candidate for bilateral SI joint fusion with the iFuse procedure. She returns today reporting a pain score of 5-6/10. She describes the pain as sharp, stabbing and painful exacerbated with standing, walking; improves with sitting, heat, medications and SI joint injections. She returns today to undergo left SI joint injection for diagnostic purposes. ALLERGIES: SULFA. CURRENT MEDICATIONS: See extensive list in chart. SOCIAL HISTORY: The patient denies tobacco, alcohol, IV or illicit drug use. She is unaccompanied today. IMAGING: No new imaging available. PQRS: The patient has known left shoulder osteoarthritis, left hip osteoarthritis, bilateral knees, bilateral SI joints and right hand. She has a history of rheumatoid arthritis and is being treated for this. She is placing pain intensity at 5-6/10. She is a fall risk, but has not had a fall in the last 3 months. She is not on blood thinner. She is treated for hypertension. She is not on chronic opioids and does have a low opioid addiction potential. She is placing pain impact score at 29/70, moderate interference in daily activities secondary to pain. PHYSICAL EXAMINATION: VITAL SIGNS: Blood pressure 127/64, pulse 64, respiratory rate 18 and unlabored. The patient 99% on room air. Height 4 feet 11 inches tall, weight 143.8 pounds, BMI calculated at 29.0. GENERAL: Well-developed, well-nourished, well-hydrated 73-year-old female, [address] [address] PAIN MANAGEMENT CONSULTATION Name: MILOMERCEDES Maya [id number] Admission: 10/13/18 ������������������ Attend Phys: Albin Mak DO Discharge: ������������������ Date of : 45 Report #: [id number] appears her stated age, placing current pain score at 5-6/10. HEENT: Normocephalic, atraumatic. Pupils equal, round, reactive to light. EXTREMITIES: Show no clubbing, no cyanosis, and no edema. MUSCULOSKELETAL: There remains palpatory tenderness over the bilateral lower lumbar spine. Deep palpation over the SI joints causes intensification of pain, left greater than right. There are well-healed surgical scars on the hips from total hip arthroplasty. ASSESSMENT: 1. Left sacroiliac joint pain. 2. Right sacroiliac joint pain. 3. Bilateral sacroiliac joint dysfunction. 4. Thoracic lumbar scoliosis. 5. Lumbosacral spondylosis without radiculopathy. 6. Axial back pain. 7. Chronic intractable pain. PLAN: 1. The patient returns today in followup visit to undergo left sacroiliac joint injection for diagnostic purposes. The patient did very well with previous right SI joint injection with nearly 70-80% improvement in overall pain, lasting for a prescribed period of time. She had an appropriate response to that right SI joint injection with improvement in symptoms that did ultimately discontinue once the medication had worn off, which would indicate an excellent candidate for the iFuse on the right. She returns to undergo left SI joint diagnostic injection. She has been advised of risks and benefits of the procedure, states she understood and wished to proceed. 2. No medication changes made at today's visit. The patient will continue current medical therapy as previously prescribed. 3. We will see the patient back in followup visit on an as needed basis. She is to contact Dr. Martinez's office early next week to discuss the efficacy of today's left SI joint diagnostic injection and determine whether or not surgical options will be possible. PROCEDURE NOTE DESCRIPTION OF PROCEDURE: Left SI joint injection under fluoroscopic guidance. After obtaining written consent, the patient was taken back to fluoroscopy suite, placed in prone position with pillow under pelvis to decrease lumbar lordosis. Skin overlying the gluteal sacral area was then prepped and draped on the left side. A 27-gauge 1-1/4 inch needle was then used to anesthetize skin and subcutaneous tissue with 2 mL of 1% lidocaine. A 22-gauge 3-1/2 inch spinal needle with bent tip was directed to the inferior aspect of the left sacroiliac joint using a posterior approach. A "giving away" [address] [address] PAIN MANAGEMENT CONSULTATION Name: MERCEDES PEDRAZA Room #: REG [facility]#: [id number] Admission: 10/13/18 ������������������ Attend Phys: Albin Mak DO Discharge: ������������������ Date of : 45 Report #: [id number] of the needle hub was noted once the dorsal sacroiliac and interosseous ligaments were engaged. After negative aspiration for heme, 0.5 mL of Omnipaque injected, outlining the inferior recess of the joint. There was no extravasation of contrast material outside of the joint. Provocation responses consistent of intense buttock pain were negative. After negative aspiration for heme, 2 mL of bupivacaine 0.5% was injected slowly to avoid forcing the solution away from the site. Needle was then retracted approximately half way, flushed with 1 mL of 1% lidocaine and then removed. Sterile bandage was placed over injection site. No new motor deficits present in the lower extremity following procedure. The patient tolerated the procedure well, carefully escorted to recovery room in stable condition. No apparent complications. The patient's pain score was 5-6/10 prior to procedure; 10 minutes after the procedure and 30 minutes after the procedure, the patient's pain was 0/10. She did contact our clinic 60 minutes after the procedure indicating pain at no greater than 0-1/10. ��������������������������������������������� <ELECTRONICALLY SIGNED> ���������������������������������������� By: Albin Mak DO ��������������������������������������������� 10/20/18 [id number] [id number] Albin Mak DO /nt
== END | disposition home or self-care (01) ==
LOC: PAIN 10-11 08:42
DX: M53.3 Sacrococcygeal disorders, not elsewhere classified (principal); M47.817 Spondylosis without myelopathy or radiculopathy, lumbosacral region; G89.29 Other chronic pain; M41.85 Other forms of scoliosis, thoracolumbar region; M54.9 Dorsalgia, unspecified; I10 Essential (primary) hypertension; M19.90 Unspecified osteoarthritis, unspecified site; Z98.890 Other specified postprocedural states; Z79.899 Other long term (current) drug therapy; Z88.2 Allergy status to sulfonamides

== ENCOUNTER → 2019-06-17 | Outpatient (CLI) | payer OTHER | LOC: CAT 10:21 | DX: M46.1 Sacroiliitis, not elsewhere classified (principal); M41.86 Other forms of scoliosis, lumbar region; M47.816 Spondylosis without myelopathy or radiculopathy, lumbar region; I70.0 Atherosclerosis of aorta; Z98.890 Other specified postprocedural states ==

== ENCOUNTER → 2019-07-11 | Outpatient (CLI) | payer OTHER | LOC: CAT 08:26 | DX: K44.9 Diaphragmatic hernia without obstruction or gangrene (principal) ==

== ENCOUNTER → 2019-07-12 | Outpatient (CLI) | payer OTHER | LOC: SJCVCIMAG 11:15 | DX: I36.1 Nonrheumatic tricuspid (valve) insufficiency (principal); I25.10 Atherosclerotic heart disease of native coronary artery without angina pectoris; I10 Essential (primary) hypertension; Z95.820 Peripheral vascular angioplasty status with implants and grafts ==

== ENCOUNTER → 2019-08-24 | Outpatient (CLI) | payer OTHER | LOC: SJCVC 10:04 | DX: I21.29 ST elevation (STEMI) myocardial infarction involving other sites (principal); R94.31 Abnormal electrocardiogram [ECG] [EKG]; I25.10 Atherosclerotic heart disease of native coronary artery without angina pectoris; I10 Essential (primary) hypertension; E78.5 Hyperlipidemia, unspecified; M06.9 Rheumatoid arthritis, unspecified; I73.00 Raynaud's syndrome without gangrene; L98.9 Disorder of the skin and subcutaneous tissue, unspecified; Z72.89 Other problems related to lifestyle; Z79.82 Long term (current) use of aspirin; Z79.899 Other long term (current) drug therapy; Z96.653 Presence of artificial knee joint, bilateral; Z96.642 Presence of left artificial hip joint ==

== ENCOUNTER → 2019-11-09 | Outpatient (CLI) | payer OTHER | LOC: BC 09-15 12:03 | DX: Z12.31 Encounter for screening mammogram for malignant neoplasm of breast (principal) ==

== ENCOUNTER 2020-01-23 08:18 | Emergency (ER) | payer OTHER ==
[~2020-01-23] VITALS: Ht 149.9 cm; Wt 65.8 kg
[~2020-01-23 08:18] MED LIST changes: -SYNTHROID88 MCG PO
[2020-01-23 09:02] LABS: HEMATOCRIT 40.9 % (37.0-47.0); HEMOGLOBIN 13.6 gm/dL (12.0-15.0); MCH 33.2 pg (26.0-34.0); MCHC 33.2 g/dL (28.0-37.0); MCV 99.8 fL (80.0-100.0); PLATELET COUNT 202 thou/uL (150-400); RBC 4.09 mil/uL (4.20-5.00); RDW 15.4 % (10.5-14.5); WBC 3.5 thou/uL (4.0-11.0)
[2020-01-23 09:42] LABS: CALCIUM 8.8 mg/dL (8.5-10.1); CREATININE 1.2 mg/dL (0.6-1.0)
[2020-01-23 11:04] LABS: ABSOLUTE NEUTROPHILS 1.8 thou/uL (1.4-8.2); ATYPICAL LYMPHS 2 %
[2020-01-23 11:05] LABS: ANISOCYTOSIS SLIGHT; LARGE PLATELETS OCCASIONAL; POIKILOCYTOSIS SLIGHT
[2020-01-23 11:26] VITALS: BP 107/50
== END 2020-01-23 11:26 | disposition home or self-care (01) ==
LOC: ER 08:18
PROVIDERS: Emergency Medicine
DX: U07.1 COVID-19 (principal); R50.9 Fever, unspecified; R05 Cough; I10 Essential (primary) hypertension; K21.9 Gastro-esophageal reflux disease without esophagitis; I48.91 Unspecified atrial fibrillation; E78.5 Hyperlipidemia, unspecified; E03.9 Hypothyroidism, unspecified; Z79.899 Other long term (current) drug therapy; Z79.82 Long term (current) use of aspirin; Z88.2 Allergy status to sulfonamides

== ENCOUNTER 2020-02-16 07:39 | Inpatient (IN) | payer OTHER ==
[~2020-02-16] VITALS: Ht 149.9 cm; Wt 63.5 kg
[2020-02-16 07:40] VITALS: BP 110/55
[2020-02-16 08:42] LABS: ABSOLUTE NEUTROPHILS 3.7 thou/uL (1.4-8.2); BASOPHILS 0.7 % (0.0-2.0); EOSINOPHILS 2.7 % (0.0-3.0); HEMATOCRIT 29.2 % (37.0-47.0); HEMOGLOBIN 9.4 gm/dL (12.0-15.0); LYMPHOCYTES 13.6 % (24.0-44.0); MCH 33.2 pg (26.0-34.0); MCHC 32.3 g/dL (28.0-37.0); MCV 102.8 fL (80.0-100.0); MONOCYTES 8.5 % (1.0-8.0); PLATELET COUNT 208 thou/uL (150-400); POLYS 74.5 % (36.0-66.0); RBC 2.84 mil/uL (4.20-5.00); RDW 16.7 % (10.5-14.5)
[2020-02-16 08:55] LABS: ANION GAP 5 mmol/L (7-16); BUN 17 mg/dL (7-18); CHLORIDE 111 mmol/L (98-107); CO2 26 mmol/L (21-32); GLUCOSE 90 mg/dL (74-106); POTASSIUM 4.3 mmol/L (3.5-5.1); SODIUM 142 mmol/L (136-145)
[2020-02-16 09:04] LABS: ALBUMIN 3.1 g/dL (3.4-5.0); DIRECT BILIRUBIN 0.1 mg/dL (<0.1-0.2); SGOT 18 U/L (15-37); SGPT 18 U/L (30-65); TOTAL BILIRUBIN 0.4 mg/dL (0.2-1.0); TOTAL PROTEIN 6.3 g/dL (6.4-8.2); TROPONIN-I <0.06 ng/mL (<0.06)
--- NOTE | 2020-02-16 09:18 | EKG ---
[facility] [place] [address] [place] [address] ELECTROCARDIOGRAM REPORT Name: MERCEDES PEDRAZA Room #: REG [facility].#: [id number] Admission: 02/16/20 Attend Phys: Discharge: Date of : 45 Report #: [id number] THIS REPORT FOR: cc: Ravi Kulkarni MD, Neal A. MD Couchonnal, Luis F. 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 : 1945 Requested By: Travis Reyes Order Number: [id number] : Roberto Liu Measurements Intervals [place] Rate: 70 P: 30 NV: 159 QRS: 46 QRSD: 95 T: 13 QT: 394 QTc: 426 Interpretive Statements Sinus rhythm Low voltage, precordial leads Abnormal R-wave progression, early transition Nonspecific T abnormalities, anterior leads Compared to ECG 05/22/2017 02:21:26 T-wave abnormality now present Ventricular premature complex(es) no longer present Right ventricular hypertrophy no longer present Electronically Signed On 02-16-2020 9:18:29 CDT by Roberto Liu [email or web address] <ELECTRONICALLY SIGNED> By: Roberto Liu MD 02/16/20917 9 9 Roberto Liu MD /EPI
[2020-02-16 09:30] LABS: URINE BILIRUBIN NEGATIVE (Negative); URINE BLOOD NEGATIVE (Negative); URINE CLARITY CLEAR; URINE COLOR YELLOW; URINE GLUCOSE-RANDOM* NEGATIVE (Negative); URINE KETONES NEGATIVE (Negative); URINE LEUKOCYTES-REFLEX NEGATIVE (Negative); URINE NITRITE-REFLEX NEGATIVE (Negative); URINE PROTEIN (DIPSTICK) NEGATIVE (Negative); URINE UROBILINOGEN 0.2 E.U./dl (0.2-1.0)
--- NOTE | 2020-02-16 09:33 | NUR ---
DAUGHTER: VALENTINE CARTER [phone]
[2020-02-16 15:32] VITALS: BP 112/53
[2020-02-16 15:57] LABS: FOLIC ACID 21.6 ng/mL (8.6-58.9)
[2020-02-16 16:24] VITALS: BP 122/58
[2020-02-16 16:41] VITALS: BP 134/58
[2020-02-16] MEDS ORDERED: KLOR-CON M2020 MEQ PO (17:23)
--- NOTE | 2020-02-16 19:42 | NUR ---
PT ADMITTED FROM ER FOR GI BLEEDING AND POSITIVE COVID, PT IS A&OX3, PT'S VS ARE STABLE, PT IS GOING TO EGD TOMORROW, RN HAS CALLED GI DR , NEW ORDER , PT IS CONTINUING PROTONIX 8MG/HR, PT IS TOLERATE CLEAR LIQUID, PT DOES NOT HAVE S/S OF GI BLEEDING AT THIS TIME.
[2020-02-16 20:23] VITALS: BP 143/66
[2020-02-16] MEDS ORDERED: LIDOCAINE PAIN1 EACH TRANSDERM (20:26)
[2020-02-17] VITALS (7 sets, daily range): BP systolic 105–115; BP diastolic 45–55
[2020-02-17 06:10] LABS: HEMATOCRIT 25.6 % (37.0-47.0); HEMOGLOBIN 8.3 gm/dL (12.0-15.0); MCH 33.1 pg (26.0-34.0); MCHC 32.6 g/dL (28.0-37.0); MCV 101.7 fL (80.0-100.0); RBC 2.52 mil/uL (4.20-5.00); RDW 16.5 % (10.5-14.5)
[2020-02-17 06:21] LABS: INR 1.1; PROTIME 11.3 Seconds (9.3-11.4)
--- NOTE | 2020-02-17 07:27 | NUR ---
THERAPY DIRECTOR checked Bg at HS and got 55 , rechecked for verification and got 66. Apple juice given. BG up to 110 after tx. Pt. requested lidocaine patch for her back. Dr. Kulkarni notified of pt.'s request and low BG. IV fluid changed to D5 1/2 NS. Protonix gtt. infusing. Assisted to use commode x1. Had med black formed bm. Kept NPO since PR for EGD today.Afebrile.
[2020-02-17 12:26] LABS: % SATURATION 14 % (20-39); IRON 30 ug/dL (50-170); TIBC 218 ug/dL (250-450)
--- NOTE | 2020-02-17 16:13 | NUR ---
ASSESSMENT: CM REVIEWED CHART. PT WAS ADMITTED FROM HOME DUE TO COMPLAINTS OF GENERALIZED WEAKNESS, MALAISE, AND VERTIGO. PT TESTED FOR COVID 19 3 WEEKS AGO AND IS STILL TESTING POSITIVE. CM ATTEMPTED TO CONTACT PATIENT BUT NO ANSWER. CM REACHED OUT TO PATIENTS DAUGHTER/DPOA AND GATHERED INFORMATION. PT LIVES IN A HOUSE ALONE WITH 2 STEPS TO ENTER AND ALL HER NEEDS ARE ON THE MAIN LEVEL. PT USES A WALKER AND CANE FOR AMBULATION. PT HAS BEEN TO [facility] IN THE PAST AND HAS HAD [email or web address] BUT HAS NOT HAD HH FOR QUITE SOME TIME. PT HAS A SHOWER BENCH AND IS INDEPENDENT WITH ADLS. PT HAD AN EGD TODAY WITH BIOPSY AND DIET IS BEING ADVANCED. CM WILL CONTINUE TO FOLLOW TO ASSIST NEEDED.
--- NOTE | 2020-02-17 18:44 | NUR ---
PT IS A&OX3, PT HAS EGD DONE TODAY, FINDING LARGE HIATAL HERNIA, SEVERAL SMALL LINEAR NONBLEEDING MARISEL'S ULCERS IN GASTRIC BODY, PT HAS 2 TIME DARK BROWN STOOL TODAY, PT'S VS ARE STABLE, PT IS TOLERATIVE REGULAR DIETY AFTER EGD, PT DENIES PAIN AND N/V, PT 'S VS ARE STABLE, PT IS CONTINUING D5 1/2 NS AT 80ML/HR , PT IS ON ISOLATION FOR POSITIVE COVID.
[2020-02-18] VITALS (7 sets, daily range): BP systolic 108–137; BP diastolic 48–66
[2020-02-18 05:48] LABS: HEMATOCRIT 24.7 % (37.0-47.0); HEMOGLOBIN 8.2 gm/dL (12.0-15.0); MCH 33.6 pg (26.0-34.0); MCHC 33.2 g/dL (28.0-37.0); MCV 101.1 fL (80.0-100.0); RBC 2.44 mil/uL (4.20-5.00); RDW 16.9 % (10.5-14.5); WBC 5.7 thou/uL (4.0-11.0)
[2020-02-18] MEDS ORDERED: PANTOPRAZOLE SO40 M1 PO (08:55)
--- NOTE | 2020-02-18 12:05 | NUR ---
PT IS A&OX3, PT HAS EGD AT 02/17/20, PT DENIES ABD PAIN AND N/V, RN HAS REPORTED TO DR ABOUT PT 'S LOW BP AND DIZZINEES , PT'S BP MEDICATIONS HAVE HOLD AT THIS MONRING, PT HAD DARK BROWN STOOL LAST NIGHT , DR HAS ORDER LAB TO RECHECK HGB AT 1200PM,
--- NOTE | 2020-02-18 18:23 | NUR ---
PT'S HGB 8.9 AT 1200PM TODAY, RN HAS CALLED TO REPORTED PT'S HGB, AND PT'S DIZZINESS HAS IMPROVED BY 1600PM, NEW ORDER TO DC PT'S IV FLUID, RECHECK PT'S VS AND BS AFTER STOP IV FLIUD, PT'S LOW BP HAS IMPROVED , PT'S BS IS NORMAL , RN HAS REPORTED TO DR ABOUT PT'S VS AND BS, RN RECEIVED ORDER TO DC PT TO HOME, RN HAS GIVING PT DC TEACHING , PT UNDERSTANDS WELL, PT'S FAMILY WILL FOXING CLOSER PT ABOUT 1900PM.
--- NOTE | 2020-02-20 18:06 | PATH ---
[facility] [address] [place] [address] PATHOLOGY RPT PROCEDURE Name: MERCEDES PEDRAZA Room #: 354-P DIS IN M.R.#: [id number] Admission: 02/16/20 Date of : 45 Discharge: 02/18/20 Report #: [id number] Path Case #: [id number] [facility] Accession Number: [id number] . 01 Material submitted: . stomach - BIOPSY OF ANTRUM R/O H. PYLORI . 01 Clinical history: . UGIB, PUI . 02 Diagnosis: Gastric mucosa, antrum rule out H. pylori, endoscopic biopsy: - Mild chronic gastritis. - Negative for intestinal metaplasia or atrophy. - Negative for Helicobacter pylori (properly controlled immunohistochemical stain performed). (IUV/db; 02/20/2020) LBQ 02/20/2020 1226 Local . 02 Electronically signed: . Melissa Villa MD, Pathologist NPI- [id number] . 01 Gross description: . Received in formalin labeled "NatashaMercedes robert, BX of antrum rule out H. pylori" is a 0.6 x 0.6 x 0.1 cm aggregate of dougherty-brown soft tissue fragments. The specimen is submitted entirely in A1. ([facility]; 02/17/2020) [facility] 02/17/2020 1756 Local . 02 Pathologist provided ICD-10: K29.50 . 02 CPT . 309685, [id number] Specimen Comment: A courtesy copy of this report has been sent to [phone], [phone] Specimen Comment: [phone] Specimen Comment: Report sent to / DR MENARD Performed at: [address], [place] [id number] MD Sam Mercer MD Phone: [phone] Performed at: [address] [id number] MD Melissa Villa MD Phone: [phone]
== END 2020-02-18 19:00 | disposition home or self-care (01) | DRG 177 ==
LOC: ER 07:39 → EROBS 10:35 → 3W 10:35
PROVIDERS: Emergency Medicine; Internal Medicine Gastroenterology; Nurse Practitioner; Specialist; ADMIT Family Medicine; ATTEND Family Medicine
PROC: 0DB78ZX Excision of Stomach, Pylorus, Via Natural or Artificial Opening Endoscopic, Diagnostic (ICD-10-PCS; principal; 2020-02-17)
DX: U07.1 COVID-19 (principal); K25.4 Chronic or unspecified gastric ulcer with hemorrhage; K92.1 Melena; D62 Acute posthemorrhagic anemia; E03.9 Hypothyroidism, unspecified; E78.5 Hyperlipidemia, unspecified; K21.9 Gastro-esophageal reflux disease without esophagitis; I10 Essential (primary) hypertension; M19.90 Unspecified osteoarthritis, unspecified site; M06.9 Rheumatoid arthritis, unspecified; K44.9 Diaphragmatic hernia without obstruction or gangrene; I25.10 Atherosclerotic heart disease of native coronary artery without angina pectoris; M81.0 Age-related osteoporosis without current pathological fracture; D64.9 Anemia, unspecified; Z96.642 Presence of left artificial hip joint; Z96.651 Presence of right artificial knee joint; Z85.828 Personal history of other malignant neoplasm of skin; Z95.5 Presence of coronary angioplasty implant and graft; Z79.82 Long term (current) use of aspirin; Z79.899 Other long term (current) drug therapy; Z88.2 Allergy status to sulfonamides
CPT/HCPCS: 10879; 62110; 62900

== ENCOUNTER → 2020-04-05 | Outpatient (CLI) | payer OTHER ==
[~2020-04-05] MED LIST changes: +KLOR-CON M2020 MEQ PO; +LIDOCAINE PAIN1 EACH TRANSDERM; +PANTOPRAZOLE SO40 M1 PO
== END ==
LOC: SJCVCIMAG 09:14
PROVIDERS: ATTEND Internal Medicine
DX: I07.1 Rheumatic tricuspid insufficiency (principal); I49.3 Ventricular premature depolarization; R00.0 Tachycardia, unspecified; I10 Essential (primary) hypertension; I25.10 Atherosclerotic heart disease of native coronary artery without angina pectoris; E78.5 Hyperlipidemia, unspecified; M06.9 Rheumatoid arthritis, unspecified; I73.00 Raynaud's syndrome without gangrene; Z95.1 Presence of aortocoronary bypass graft; Z79.899 Other long term (current) drug therapy

== ENCOUNTER → 2020-10-11 | Outpatient (CLI) | payer OTHER | LOC: SJCVC 09:58 | PROVIDERS: ATTEND Internal Medicine | DX: I25.10 Atherosclerotic heart disease of native coronary artery without angina pectoris (principal); I10 Essential (primary) hypertension; E78.5 Hyperlipidemia, unspecified; M06.9 Rheumatoid arthritis, unspecified; I73.00 Raynaud's syndrome without gangrene; Z98.890 Other specified postprocedural states; Z88.8 Allergy status to other drugs, medicaments and biological substances; Z79.899 Other long term (current) drug therapy ==

== ENCOUNTER → 2021-01-03 | Outpatient (CLI) | payer OTHER | LOC: BC 10:49 | PROVIDERS: ATTEND Obstetrics & Gynecology | DX: Z12.31 Encounter for screening mammogram for malignant neoplasm of breast (principal) ==

== ENCOUNTER 2021-02-02 05:09 | Emergency (ER) | payer OTHER ==
[~2021-02-02] VITALS: Ht 149.9 cm; Wt 63.5 kg
[2021-02-02 05:53] LABS: ABSOLUTE NEUTROPHILS 5.4 thou/uL (1.4-8.2); BASOPHILS 0.9 % (0.0-2.0); EOSINOPHILS 1.6 % (0.0-3.0); HEMATOCRIT 41.7 % (37.0-47.0); HEMOGLOBIN 13.9 gm/dL (12.0-15.0); LYMPHOCYTES 14.5 % (24.0-44.0); MCH 34.2 pg (26.0-34.0); MCHC 33.4 g/dL (28.0-37.0); MCV 102.3 fL (80.0-100.0); MONOCYTES 2.8 % (1.0-8.0); PLATELET COUNT 195 thou/uL (150-400); POLYS 80.2 % (36.0-66.0); RBC 4.08 mil/uL (4.20-5.00); RDW 14.6 % (10.5-14.5); WBC 6.7 thou/uL (4.0-11.0)
[2021-02-02 06:03] LABS: ANION GAP 10 mmol/L (7-16); BUN 24 mg/dL (7-18); CALCIUM 9.4 mg/dL (8.5-10.1); CHLORIDE 106 mmol/L (98-107); CO2 27 mmol/L (21-32); CREATININE 1.2 mg/dL (0.6-1.0); GLUCOSE 102 mg/dL (74-106); SODIUM 143 mmol/L (136-145)
[2021-02-02 06:10] LABS: ALBUMIN 3.6 g/dL (3.4-5.0); POTASSIUM 4.6 mmol/L (3.5-5.1); SGOT 51 U/L (15-37); SGPT 47 U/L (14-59); TOTAL BILIRUBIN 0.7 mg/dL (0.2-1.0); TOTAL PROTEIN 7.5 g/dL (6.4-8.2); TROPONIN-I <0.06 ng/mL (<0.06)
[2021-02-02 07:30] LABS: URINE BILIRUBIN NEGATIVE (Negative); URINE BLOOD NEGATIVE (Negative); URINE CLARITY CLEAR; URINE COLOR YELLOW; URINE GLUCOSE-RANDOM* NEGATIVE (Negative); URINE KETONES NEGATIVE (Negative); URINE LEUKOCYTES-REFLEX NEGATIVE (Negative); URINE NITRITE-REFLEX NEGATIVE (Negative); URINE PROTEIN (DIPSTICK) NEGATIVE (Negative); URINE SPECIFIC GRAVITY <= 1.005 (1.005-1.035); URINE UROBILINOGEN 0.2 E.U./dl (0.2-1.0)
[2021-02-02] MEDS ORDERED: MECLIZINE HCL25 M1 PO (07:42)
[2021-02-02 07:43] VITALS: BP 110/56
--- NOTE | 2021-02-02 09:52 | EKG ---
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 : 1945 Requested By: Lewis Johnson Order Number: [id number] MD: Carter Coornado Measurements Intervals [place] Rate: 69 P: 20 IA: 166 QRS: 32 QRSD: 100 T: 3 QT: 400 QTc: 429 Interpretive Statements Sinus rhythm Low voltage, precordial leads Right ventricular conduction delay Nonspecific T abnormalities, anterior leads Compared to ECG 02/16/2020 08:00:00 No significant changes Electronically Signed On 02-02-2021 9:51:58 CDT by Carter Coronado [email or web address] <ELECTRONICALLY SIGNED> By: Carter Coronado MD 02/02/21 0951 0516 0516 Carter Coronado MD /COBY
== END 2021-02-02 07:43 | disposition home or self-care (01) ==
LOC: ER 05:09
PROVIDERS: Emergency Medicine
DX: R42 Dizziness and giddiness (principal); I10 Essential (primary) hypertension; E78.5 Hyperlipidemia, unspecified; K21.9 Gastro-esophageal reflux disease without esophagitis; I48.91 Unspecified atrial fibrillation; Z98.890 Other specified postprocedural states; Z79.891 Long term (current) use of opiate analgesic; Z79.82 Long term (current) use of aspirin; Z79.1 Long term (current) use of non-steroidal anti-inflammatories (NSAID); Z79.899 Other long term (current) drug therapy; Z88.2 Allergy status to sulfonamides

== ENCOUNTER → 2021-04-19 | Outpatient (CLI) | payer OTHER ==
[~2021-04-19] MED LIST changes: +MECLIZINE HCL25 M1 PO
== END ==
LOC: SJCVC 14:27
PROVIDERS: ATTEND Internal Medicine
DX: R94.31 Abnormal electrocardiogram [ECG] [EKG] (principal); I25.10 Atherosclerotic heart disease of native coronary artery without angina pectoris; I10 Essential (primary) hypertension; E78.5 Hyperlipidemia, unspecified; M06.9 Rheumatoid arthritis, unspecified; I73.00 Raynaud's syndrome without gangrene; Z79.82 Long term (current) use of aspirin; Z79.899 Other long term (current) drug therapy; Z88.2 Allergy status to sulfonamides; Z72.89 Other problems related to lifestyle